=== PATIENT | male | born 1990 | race Caucasian/White ===

== ENCOUNTER 2020-06-19 13:25 | Outpatient (REF) | payer OTHER, SELFPAY | END 2020-06-19 13:26 | disposition home or self-care (01) | LOC: HO.LAB 13:25 | PROVIDERS: Visit Provider Internal Medicine | DX: Z20.828 Contact with and (suspected) exposure to other viral communicable diseases (principal) | CPT/HCPCS: C9803; U0003 ==

== ENCOUNTER 2020-11-28 01:56 | Emergency (ER) | payer OTHER, SELFPAY ==
--- NOTE | ~2020-11-28 | XR_ITS ---
EXAMINATION: XR CHEST CLINICAL INFORMATION: Cough COMPARISON: None TECHNIQUE: Frontal view of the chest was obtained. FINDINGS: Lung volumes are symmetric. No focal consolidation is seen. No evidence of pneumothorax, pleural effusion, or pulmonary edema. The cardiomediastinal contour is unremarkable. No acute osseous findings are seen. XR/XR chest 1V IMPRESSION: No acute cardiopulmonary findings.
[2020-11-28 02:05] VITALS: BP 116/68; PULSE 101; RESP 20; TEMP 36.1; O2SAT 98; BMI 33.6
--- NOTE | 2020-11-28 03:53 | ED_ITS ---
HPI - General Adult General Chief complaint: General Medical Stated complaint: body aches, chills, nausea Time Seen by Provider: 11/28/20 03:48 Source: patient Mode of arrival: ambulatory Limitations: no limitations History of Present Illness HPI narrative: Patient comes emergency room complaining of generalized malaise that started a few hours ago. Patient noticed mild dry cough, nausea, otherwise denies chest pain, no shortness of breath, no abdominal pain, no vomiting or diarrhea. No known sick contacts. Related Data Allergies Allergy/AdvReac Type Severity Reaction Status Date / Time No Known Allergies Allergy Unverified 03/15/20 16:09 Review of Systems Review of Systems: Constitutional : No Weight loss, No Fever, complaining of chills and generalized malaise ENT/Mouth : No Hearing loss, No Ear Pain, No Nasal Congestion, No Sinus Pain, No Hoarseness, No sore throat, No Rhinorrhea, No Swallowing Difficulty Eyes: No Eye Pain, No Swelling, No Redness, No Foreign Body, No Discharge, No Vision Changes Cardiovascular : No Chest Pain, No SOB, No Dyspnea on Exertion, No Orthopnea, No Edema, No Palpitations Respiratory : Mild occasional dry Cough, No Sputum, No Wheezing, No Smoke Exposure, No Dyspnea Gastrointestinal : Mild Nausea, No Vomiting, No Diarrhea, No Constipation, No abdominal Pain, No Hematochezia, No Melena Genitourinary : no irregular bleeding, No Dysuria, No Urinary Frequency, No Hematuria, No Urinary Incontinence, No Urgency, No Flank Pain, No Urinary Flow Changes, No Hesitancy Musculoskeletal : No joint pain, No Myalgias, No Joint Swelling Skin : No Skin Lesions, No rash Neuro : No Weakness, No Numbness, No Paresthesias, No Loss of Consciousness, No Dizziness, No Headache Psych : No Anxiety/Panic, No Depression, No SI/HI/AH/VH, No Social Issues, Heme/Lymph: No Bruising, No Bleeding,No Lymphadenopathy Endocrine : No Polyuria, No Polydipsia, No Temperature Intolerance [facility] Past Medical History Medical History No known health problems Social History Social History Alcohol intake: current Alcohol intake frequency: holidays/special occasions only Patient Tobacco Use Status: Never used Tobacco Use of substances other than those prescribed or required for medical reasons: No Advance Directives: No Advance Directives Information Provided: No Physical Exam Vital Signs: Vital Signs: Last Vital Signs Temp 97.0 F 11/28/20 02:05 Pulse 82 11/28/20 04:00 Resp 15 11/28/20 04:00 BP 140/67 H 11/28/20 04:00 Pulse Ox 98 11/28/20 04:00 Body Mass Index 33.6 Appearance: Alert. Oriented X3. No acute distress. Eyes: Pupils equal, round and reactive to light. ENT: Pharynx normal. Neck: Normal inspection. Neck supple. No lymph nodes noted. No crepitus CVS: Normal heart rate and rhythm. Pulses normal. Normal S1 and S2 Respiratory: No respiratory distress. Breath sounds normal. No Wheezing. No rales Abdomen: Soft and nontender. No rigidity. No distention. good BS x4 Skin: Skin warm and dry. Normal skin color. Normal skin turgor. Extremities: No lower extremity edema. No lower extremity edema. No Lacerations. No Rash Neuro: Oriented X 3. No motor deficit. No sensory deficit. Moving all extermities. No slurred speech. Course Course Course Narrative: I discussed with the patient that his white blood cell count is slightly elevated, likely reactive leukocytosis, likely a viral infection. Chest x-ray within normal limits, COVID negative. Medical Decision Making Lab Data Result diagrams: 11/28/20 04:14 11/28/20 04:14 Labs: Lab Results 11/28/20 11/28/20 11/28/20 Range/Units 04:14 04:14 04:14 WBC 10.9 H (4.8-10.8) X10*3/uL RBC 4.69 (4.60-5.80) X10*6/uL Hgb 14.1 (14.0-18.0) g/dl Hct 42.1 (42-52) % MCV 89.8 (80-98) fL MCH 30.1 (27.0-33.0) pg MCHC 33.5 (31.0-36.0) g/dl RDW 12.5 (11.0-16.0) % Plt Count 305 (160-400) X10*3/uL MPV 9.4 (9.4-12.4) fL Immature Gran % (Auto) 0.3 (0.0-0.4) % Neut % (Auto) 66.4 (45-73) % Lymph % (Auto) 22.0 (20-40) % [place] % (Auto) 11.0 (2-11) % Eos % (Auto) 0.1 (0-4) % Baso % (Auto) 0.2 (0-2) % Lymph # (Auto) 2.4 (1.2-4.9) X10*3/uL [place] # (Auto) 1.2 (0.1-1.2) X10*3/uL Eos # (Auto) 0.0 (0.0-0.4) X10*3/uL Baso # (Auto) 0.0 (0.0-0.2) X10*3/uL Abs Immat Gran (auto) 0.03 (0.00-0.03) X10*3/uL Absolute Neuts (auto) 7.3 (2.0-8.3) X10*3/uL Absolute Nucleated RBC 0.000 (0.0-0.012) X10*3/uL Nucleated RBC % (auto) 0.0 (0.0-0.2) /100WBC Sodium 142 (135-145) mmol/L Potassium 3.3 (3.3-5.1) mmol/L Chloride 105 (96-108) mmol/L Carbon Dioxide 27 (22-29) mmol/L Anion Gap 13 (12-20) BUN 13 (9-16) mg/dL Creatinine 0.85 (0.5-1.4) mg/dL Estim Creat Clear Calc 122.2 Estimated GFR > 60 Random Glucose 105 (60-115) mg/dL Calcium 9.3 (8.4-10.2) mg/dL COVID-19 (JOHN) Negative (Negative) COVID-19 Clin Com See Note Imaging Data Chest x-ray: Radiologist's impression: FINDINGS: Lung volumes are symmetric. No focal consolidation is seen. No evidence of pneumothorax, pleural effusion, or pulmonary edema. The cardiomediastinal contour is unremarkable. No acute osseous findings are seen. XR/XR chest 1V IMPRESSION: No acute cardiopulmonary findings. Discharge Plan Discharge Clinical Impression: Acute viral syndrome Patient Disposition: Home, Self-Care Instructions: Viral Syndrome (ED) Additional Instructions: Please follow-up with your primary care physician tomorrow. If you have any worsening or new symptoms, please return to the emergency room or call 911 Stand Alone Forms: Work/School Release
[2020-11-28 04:00] VITALS: BP 140/67; PULSE 82; RESP 15; O2SAT 98
[2020-11-28 04:19] LABS: Basophils Percent Auto 0.2 % (0-2); Eosinophils Percent Auto 0.1 % (0-4); Hematocrit 42.1 % (42-52); Hemoglobin 14.1 g/dl (14.0-18.0); Imm Gran Abs Auto 0.03 X10*3/uL (0.00-0.03); Imm Gran Pct Auto 0.3 % (0.0-0.4); Lymphocytes Absolute Auto 2.4 X10*3/uL (1.2-4.9); MANUAL DIFF FLAG NO; Mean Corpuscular HGB Conc 33.5 g/dl (31.0-36.0); Mean Corpuscular Hemoglobin 30.1 pg (27.0-33.0); Mean Corpuscular Volume 89.8 fL (80-98); Mean Platelet Volume 9.4 fL (9.4-12.4); Monocytes Absolute Auto 1.2 X10*3/uL (0.1-1.2); Neutrophils Absolute Auto 7.3 X10*3/uL (2.0-8.3); Neutrophils Percent Auto 66.4 % (45-73); Platelet Count 305 X10*3/uL (160-400); Red Blood Count 4.69 X10*6/uL (4.60-5.80); Red Cell Distribution Width 12.5 % (11.0-16.0); White Blood Count 10.9 X10*3/uL (4.8-10.8)
[2020-11-28 04:41] LABS: COVID-19 Test Negative (Negative); IDNOW Serial# 9DD0AD1C
[2020-11-28 04:46] LABS: Anion Gap 13 (12-20); Blood Urea Nitrogen 13 mg/dL (9-16); Calcium 9.3 mg/dL (8.4-10.2); Carbon Dioxide 27 mmol/L (22-29); Chloride 105 mmol/L (96-108); Creatinine Clr Calc Pharmacy 122.2; Estimated Glomerular Filt Rate > 60; Glucose Random 105 mg/dL (60-115); Potassium 3.3 mmol/L (3.3-5.1); Sodium 142 mmol/L (135-145)
== END 2020-11-28 05:11 | disposition home or self-care (01) ==
PROVIDERS: Emergency Provider Emergency Medicine
DX: B34.9 Viral infection, unspecified (principal); Z20.822 Contact with and (suspected) exposure to COVID-19; M79.10 Myalgia, unspecified site
CPT/HCPCS: 36415; 71045; 80048; 85025; 87635; 99283; 99284

== ENCOUNTER 2023-02-28 01:42 | Emergency (ER) | payer OTHER, SELFPAY ==
--- NOTE | ~2023-02-28 | CT_ITS ---
EXAMINATION: CT ABDOMEN AND PELVIS WITHOUT CONTRAST CLINICAL INFORMATION: Abdominal pain. COMPARISON: None available. TECHNIQUE: Multidetector volumetric imaging was performed from the superior aspect of the liver through the pubic symphysis. Sagittal and coronal reformatted images were obtained on the technologist's workstation. This CT examination was performed using dose optimization techniques as appropriate, variously including the following: *Automated exposure control *Adjustment of mA and/or kV according to patient size (this includes techniques or standardized protocols for targeted exams where dose is matched to indication/reason for exam; i.e. extremities or head) *Use of iterative reconstruction technique DLP: 464 mGy-cm FINDINGS: LUNG BASES: The visualized lung bases are unremarkable. LIVER, GALLBLADDER, AND BILIARY TREE: The liver is normal in size, shape, and attenuation. No focal hepatic lesion or biliary ductal dilatation is present. The gallbladder is unremarkable with no evidence of radiopaque gallstones, gallbladder wall thickening, or obvious pericholecystic inflammatory changes. PANCREAS: Unremarkable. SPLEEN: Unremarkable. ADRENAL GLANDS: Unremarkable. KIDNEYS AND URETERS: The kidneys are normal in size, shape, and attenuation. No hydronephrosis, hydroureter, or calculi seen. No perinephric stranding. BLADDER: Unremarkable. GASTROINTESTINAL TRACT: The appendix is not seen. There are surgical clips at the base of the cecum. There is retained right, transverse and descending colonic stool. ABDOMINAL WALL: There is a minimal umbilical hernia containing fat LYMPH NODES: Normal. VASCULAR: Unremarkable. PELVIC VISCERA: Unremarkable. OSSEOUS STRUCTURES: Unremarkable. CT/CT abdomen pelvis wo IV con IMPRESSION: No significant abnormality. Fleischner guidelines were followed.
[2023-02-28 02:14] VITALS: BP 134/80; PULSE 95; RESP 18; TEMP 36.9; O2SAT 98; BMI 30.5
[2023-02-28 02:41] LABS: Appearance Urine Clear; Color Urine Yellow; Glucose Urine UA Negative (Negative); Leukocyte Esterase Urine Trace (Negative); Nitrite Urine Negative (Negative); PH 7.5 (5.0-9.0); Specific Gravity - Urine <= 1.005 (1.005-1.025); UMIC TRIGGER UACC YES; Urine Blood Large (3+) (Negative); Urine Ketones Negative (Negative); Urine Protein Negative (Neg-Trace)
[2023-02-28 02:51] LABS: Bacteria Urine None Seen (None Seen); Hyaline Casts Urine 0-2 /LPF (0-2); Squamous Epithelial Cell Urine 0-2 /HPF (0-2); WBC Urine 0-5 /HPF (0-5)
--- NOTE | 2023-02-28 02:57 | ED_ITS ---
HPI - General Adult General Chief complaint: Abdominal Pain Stated complaint: Urinating blood with pain Time Seen by Provider: 02/28/23 02:53 Source: patient Mode of arrival: ambulatory Limitations: no limitations History of Present Illness HPI narrative: Patient comes to the emergency room complaining of left-sided flank pain for almost 24 hours intermittently. Patient states that yesterday he saw blood in the urine and today he had brown looking urine. Patient states that he has had kidney stones in the past which required lithotripsy. At this time, patient states the pain is minimal, no nausea vomiting diarrhea, no fever chills. Related Data Previous Rx's Medication Instructions Recorded levofloxacin 500 mg tablet 500 mg PO DAILY #7 tabs 02/28/23 Allergies Allergy/AdvReac Type Severity Reaction Status Date / Time No Known Allergies Allergy Unverified 03/15/20 16:09 Review of Systems Review of Systems: Constitutional : No Weight loss, No Fever, No Chills, No Night Sweats, No Fatigue, No Malaise ENT/Mouth : No Hearing loss, No Ear Pain, No Nasal Congestion, No Sinus Pain, No Hoarseness, No sore throat, No Rhinorrhea, No Swallowing Difficulty Eyes: No Eye Pain, No Swelling, No Redness, No Foreign Body, No Discharge, No Vision Changes Cardiovascular : No Chest Pain, No SOB, No Dyspnea on Exertion, No Orthopnea, No Edema, No Palpitations Respiratory : No Cough, No Sputum, No Wheezing, No Smoke Exposure, No Dyspnea Gastrointestinal : No Nausea, No Vomiting, No Diarrhea, No Constipation, No abdominal Pain, No Hematochezia, No Melena Genitourinary : No Dysuria, No Urinary Frequency, complaining Hematuria, No Urinary Incontinence, No Urgency, complaining of left-sided Flank Pain, No Urinary Flow Changes, No Hesitancy Musculoskeletal : No joint pain, No Myalgias, No Joint Swelling Skin : No Skin Lesions, No rash Neuro : No Weakness, No Numbness, No Paresthesias, No Loss of Consciousness, No Dizziness, No Headache Psych : No Anxiety/Panic, No Depression, No SI/HI/AH/VH, No Social Issues, Heme/Lymph: No Bruising, No Bleeding,No Lymphadenopathy Endocrine : No Polyuria, No Polydipsia, No Temperature Intolerance PMFSH Past Medical History Medical History No known health problems Social History Social History Alcohol intake: never Patient Tobacco Use Status: Never used Tobacco Use of substances other than those prescribed or required for medical reasons: No Advance Directives: No Advance Directives Information Provided: Yes Physical Exam ED Vital Signs: Vital Signs - 24 hr 02/28/23 02:14 02/28/23 04:40 02/28/23 06:13 Temperature 98.5 F 97.8 F Pulse Rate 95 69 Respiratory Rate 18 16 16 Blood Pressure 134/80 102/67 Pulse Oximetry 98 98 Oxygen Delivery Method Room Air Room Air BMI result Body Mass Index 30.5 Const Other: Appearance: Alert. Oriented X3. No acute distress. Eyes: Pupils equal, round and reactive to light. ENT: Pharynx normal. Neck: Normal inspection. Neck supple. No lymph nodes noted. No crepitus CVS: Normal heart rate and rhythm. Pulses normal. Normal S1 and S2 Respiratory: No respiratory distress. Breath sounds normal. No Wheezing. No rales Abdomen: Soft and nontender. No rigidity. No distention. Back: No paraspinal muscle tenderness, patient does have positive CVA tenderness very mild on the left Skin: Skin warm and dry. Normal skin color. Normal skin turgor. Extremities: No lower extremity edema. No Lacerations. No Rash Neuro: Oriented X 3. No motor deficit. No sensory deficit. Moving all extremities. No slurred speech. CN 2 through 12 grossly intact Psych: calm, cooperative, normal affect Medical Decision Making Medical Decision Making MDM Narrative: My interpretation of labs, white blood cell count basically normal, chemistries normal, BUN creatinine normal, urinalysis positive for blood, trace leukocyte esterase, no bacteria seen, given the symptoms, we will go ahead treat as a UTI -CT scan of the abdomen pelvis to rule out ureterolithiasis pending CT scan my interpretation: No kidney stones. Differential Diagnosis Differential Diagnoses: The differential diagnosis associated with the presentation includes (Pyelonephritis, UTI, renal colic, ureterolithiasis) Admission/Observation Consideration of admission/observation: Escalation of care including admission/observation considered (Patient came in complaining of hematuria and flank pain, admission considered) Lab Data MDM Lab Attestation statement: I reviewed the patient's lab results. 02/28/23 03:14 02/28/23 03:14 Labs: Lab Results 02/28/23 02/28/23 02/28/23 Range/Units 02:35 03:14 03:14 WBC 8.8 (4.8-10.8) X10*3/uL RBC 3.91 L (4.60-5.80) X10*6/uL Hgb 12.1 L (14.0-18.0) g/dl Hct 35.9 L (42.0-52.0) % MCV 91.8 (80.0-98.0) fL MCH 30.9 (27.0-33.0) pg MCHC 33.7 (31.0-36.0) g/dl RDW 13.6 (11.0-16.0) % Plt Count 318 (160-400) X10*3/uL MPV 8.4 L (9.4-12.4) fL Immature Gran % (Auto) 0.2 (0.0-0.4) % Neut % (Auto) 57.5 (45-73) % Lymph % (Auto) 26.0 (20-40) % [place] % (Auto) 11.8 H (2-11) % Eos % (Auto) 4.0 (0-4) % Baso % (Auto) 0.5 (0-2) % Lymph # (Auto) 2.3 (1.2-4.9) X10*3/uL [place] # (Auto) 1.0 (0.1-1.2) X10*3/uL Eos # (Auto) 0.4 (0.0-0.4) X10*3/uL Baso # (Auto) 0.0 (0.0-0.2) X10*3/uL Abs Immat Gran (auto) 0.02 (0.00-0.03) X10*3/uL Absolute Neuts (auto) 5.0 (2.0-8.3) x10*3/uL Absolute Nucleated RBC 0.000 (0.0-0.012) X10*3/uL Nucleated RBC % (auto) 0.0 (0.0-0.2) /100WBC Sodium 138 (135-145) mmol/L Potassium 3.4 (3.3-5.1) mmol/L Chloride 103 (96-108) mmol/L Carbon Dioxide 24 (22-29) mmol/L Anion Gap 14 (12-20) BUN 12 (9-16) mg/dL Creatinine 0.66 (0.5-1.4) mg/dL Estim Creat Clear Calc 147.1 Estimated GFR > 60 Random Glucose 104 (60-115) mg/dL Calcium 9.5 (8.4-10.2) mg/dL Urine Color Yellow Urine Appearance Clear Urine pH 7.5 (5.0-9.0) Ur Specific [place] <= 1.005 (1.005-1.025) Urine Protein Negative (Neg-Trace) mg/dL Urine Glucose (UA) Negative (Negative) mg/dL Urine Ketones Negative (Negative) mg/dL Urine Blood Large (3+) H (Negative) Urine Nitrite Negative (Negative) Ur Leukocyte Esterase Trace H (Negative) Urine RBC 11-20 H (0-2) /HPF Urine WBC 0-5 (0-5) /HPF Ur Squamous Epith Cells 0-2 (0-2) /HPF Urine Bacteria None Seen (None Seen) Hyaline Casts 0-2 (0-2) /LPF Independent Interpretation I performed an independent interpretation of an: CT Scan Radiology Impression Discussion of test interpretation with radiology: I have reviewed the radiologist's reading. Radiologist Impression: FINDINGS: LUNG BASES: The visualized lung bases are unremarkable.? LIVER, GALLBLADDER, AND BILIARY TREE: The liver is normal in size, shape, and attenuation. No focal hepatic lesion or biliary ductal dilatation is present. The gallbladder is unremarkable with no evidence of radiopaque gallstones, gallbladder wall thickening, or obvious pericholecystic inflammatory changes.? PANCREAS: Unremarkable.? SPLEEN: Unremarkable.? ADRENAL GLANDS: Unremarkable.? KIDNEYS AND URETERS: The kidneys are normal in size, shape, and attenuation. No hydronephrosis, hydroureter, or calculi seen. No perinephric stranding. ? BLADDER: Unremarkable.? GASTROINTESTINAL TRACT: The appendix is not seen. There are surgical clips at the base of the cecum. There is retained right, transverse and descending colonic stool.? ABDOMINAL WALL: There is a minimal umbilical hernia containing fat? LYMPH NODES: Normal. VASCULAR: Unremarkable. PELVIC VISCERA: Unremarkable.? OSSEOUS STRUCTURES: Unremarkable.? CT/CT abdomen pelvis wo IV con IMPRESSION: No significant abnormality.? ? Fleischner guidelines were followed Critical Care Time Critical Care Time Critical Care Time: Yes Total Critical Care Time: 60 Attestation: I have personally provided critical care time. Time includes review of lab data, radiology results, discussion with consultants, and monitoring for potential decompensation. Intervention performed as documented. Discharge Plan Discharge Clinical Impression: Acute UTI Patient Disposition: Home, Self-Care Instructions: Urinary Tract Infection in Men (ED) Additional Instructions: Please follow-up with your primary care physician tomorrow. If you have any worsening or new symptoms, please return to the emergency room or call 911 Prescriptions: New levofloxacin 500 mg tablet 500 mg PO DAILY Qty: 7 0RF
[2023-02-28 03:17] LABS: MANUAL DIFF FLAG NO
[2023-02-28 03:20] LABS: Basophils Percent Auto 0.5 % (0-2); Eosinophils Absolute Auto 0.4 X10*3/uL (0.0-0.4); Hematocrit 35.9 % (42.0-52.0); Hemoglobin 12.1 g/dl (14.0-18.0); Imm Gran Abs Auto 0.02 X10*3/uL (0.00-0.03); Imm Gran Pct Auto 0.2 % (0.0-0.4); Lymphocytes Absolute Auto 2.3 X10*3/uL (1.2-4.9); Mean Corpuscular HGB Conc 33.7 g/dl (31.0-36.0); Mean Corpuscular Hemoglobin 30.9 pg (27.0-33.0); Mean Corpuscular Volume 91.8 fL (80.0-98.0); Mean Platelet Volume 8.4 fL (9.4-12.4); Monocytes Percent Auto 11.8 % (2-11); Neutrophils Percent Auto 57.5 % (45-73); Platelet Count 318 X10*3/uL (160-400); Red Blood Count 3.91 X10*6/uL (4.60-5.80); Red Cell Distribution Width 13.6 % (11.0-16.0); White Blood Count 8.8 X10*3/uL (4.8-10.8)
[2023-02-28 03:32] LABS: Anion Gap 14 (12-20); Blood Urea Nitrogen 12 mg/dL (9-16); Calcium 9.5 mg/dL (8.4-10.2); Carbon Dioxide 24 mmol/L (22-29); Chloride 103 mmol/L (96-108); Creatinine Clr Calc Pharmacy 147.1; Estimated Glomerular Filt Rate > 60; Glucose Random 104 mg/dL (60-115); Potassium 3.4 mmol/L (3.3-5.1); Sodium 138 mmol/L (135-145)
[2023-02-28 04:40] VITALS: RESP 16
[2023-02-28 06:13] VITALS: BP 102/67; PULSE 69; RESP 16; TEMP 36.6; O2SAT 98
== END 2023-02-28 06:36 | disposition home or self-care (01) ==
PROVIDERS: Emergency Provider Emergency Medicine
DX: N39.0 Urinary tract infection, site not specified (principal)
CPT/HCPCS: 36415; 74176; 80048; 81001; 85025; 99284

== ENCOUNTER 2024-09-30 09:36 | Outpatient (AMB) | payer OTHER, SELFPAY ==
--- NOTE | 2024-09-30 09:36 | A.OFFVIS_ITS ---
Vital Signs 09/30/24 09:47 Height 5 ft 2 in Weight 178 lb BMI 32.6 Pulse 96 Pulse Source Pulse Oximeter Pulse Oximetry (%) 99 Oxygen Delivery Method Room Air Intake Visit Reasons: Intake Allergies No Known Allergies Allergy (Verified 09/30/24 09:47) HPI HPI Intake: Details: He is here for cocaine use disorder as well as opioid use disorder. He has used cocaine for last three years and was first 1 1/2 years every three months and then now daily. He uses one bag a day of cocaine. He also uses 1/4 of 8 mg suboxone script (2 mg) daily which he started one month ago and now cant get off but wants to He also buys Xanax ,not sure of mg or how much uses daily. He came in for cocaine use disorder but did not admit to use of buprenorphine or benzodiazepine until we discussed drug screen. He used all today. Source of income was job at [employer] but they downsized and he got laid off last month. He lives with and two children. He has no PCP but did see [facility] in past and will reconnect. 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 resides at home IVDA denies no OD Recovery history no recovery no inpatient no care home house no Methadone no Suboxone no AA/NA no 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 [facility] waiting for [facility] on list,Jesús in past doesnt want to return dx depression no other addictive behavior reported no SI or HI Med no seizures,no head injury Denies Hepatitis A,B,C or HIV or TB no chronic pain Legal denies incarceration ,parole,court cases or programs No [employer] 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 Father No problems noted. Mother Health problem in family Social History (Updated 09/30/24 @ 10:51 by Kiera White MD) Alcohol intake: current Alcohol intake frequency: holidays/special occasions only Comment: weekend 1=2 standard drinks Patient Tobacco Use Status: Current everyday Tobacco user Cigarette Packs Per Day: 0.5 Cigarettes Per Day: 10 Years Smoked: 10 e-Cigarette/Vaping Use: Never Used Second Hand Smoke Exposure: No Review of Systems Const Details: insomnia anxiety depression Physical Exam Vital Signs: Last Vital Signs Pulse 96 09/30/24 09:47 Pulse Ox 99 09/30/24 09:47 Oxygen Delivery Method Room Air 09/30/24 09:47 BMI result Body Mass Index 32.6 Const General: cooperative HEENT Other: lip prior surgery upper lip scar Ears: hearing grossly normal bilaterally Mouth: Normal oral and palatal mucosa present Resp Effort & Inspection: normal respiratory effort Cardio Rate: regular rate GI Inspection: Yes normal to inspection Extrem General: Yes normal to inspection Psych Appearance: grossly normal Results AMB 14 Panel Urine Drug Screen Urine Marijuana (THC) Negative Last Edit by Dena Preston CMA on 09/30/24 09:49 Urine Cocaine Positive Last Edit by Dena Preston CMA on 09/30/24 09:49 Urine Morphine Negative Last Edit by Dena Preston CMA on 5 09:49 Urine Methamphetamine Negative Last Edit by Dena Preston CMA on 09/30/24 09:49 Urine Amphetamine Negative Last Edit by Dena Preston CMA on 09/30/24 09:49 Urine Benzodiazepine Positive Last Edit by Dena Preston CMA on 09/30/24 09:49 Urine Barbiturates Negative Last Edit by Dena Preston CMA on 09/30/24 09:49 Urine Methadone Negative Last Edit by Dena Preston CMA on 09:49 Urine Buprenorphine Positive Last Edit by Dena Preston CMA on 09/30/24 09:49 Urine Tricyclic Antidepressant Negative Last Edit by Dena Preston CMA on 09/30/24 09:49 Urine MDMA Negative Last Edit by Dena Preston CMA on 09/30/24 09 :49 Urine Oxycodone Negative Last Edit by Dena Preston CMA on 09:49 Urine Phencyclidine Negative Last Edit by Dena Preston CMA on 09/30/24 09:49 Urine Propoxyphene Negative Last Edit by Dena Preston CMA on 09/30/24 09:49 Results Reviewed Results Reviewed: Laboratory Last Values POC Urine Buprenorphine Positive 09/30/24 09:36 POC Urine Morphine Negative 09/30/24 09:36 POC Urine Oxycodone Negative 09/30/24 09:36 POC Urine Methadone Negative 09/30/24 09:36 POC Urine Propoxyphene Negative 09/30/24 09:36 POC Urine Barbiturates Negative 09/30/24 09:36 POC U Tricyclic Antidpr Negative 09/30/24 09:36 POC Urine PCP Negative 09/30/24 09:36 POC Ur Amphetamines Negative 09/30/24 09:36 POC Ur Methamphetamine Negative 09/30/24 09:36 POC Urine MDMA Negative 09/30/24 09:36 POC Ur Benzodiazepine Positive 09/30/24 09:36 POC Urine Cocaine Positive 09/30/24 09:36 POC Ur Marijuana (THC) Negative 09/30/24 09:36 Assessment & Plan Assessment & Plan (1) Cocaine use disorder, moderate, dependence: Comment: moderate daily use Code(s): F14.20 - Cocaine dependence, uncomplicated Category: Medical Plan: Wellbutrin (2) Depression: Code(s): F32.A - Depression, unspecified Category: Medical Plan: Welbutrin (3) Anxiety: Comment: general Code(s): F41.9 - Anxiety disorder, unspecified Category: Medical Plan: hydroxyzine (4) Opioid use disorder: Comment: patient wishes to taper off suboxone he started taking one month ago Code(s): F11.90 - Opioid use, unspecified, uncomplicated Category: Medical Plan continue 2 mg and patient instructed taper every three days if able 3 days 2 mg 3 days 1.5 mg 3 days 1 mg 3 days .5 mg see us 14 days Orders: Orders AMB 14 Panel Urine Drug Screen Today Z51.81 - Encounter for therapeutic drug level monitoring Complete Blood Count Auto Diff Today F14.20 - Cocaine dependence, uncomplicated Basic Metabolic Panel Today F14.20 - Cocaine dependence, uncomplicated Liver Panel Today F14.20 - Cocaine dependence, uncomplicated Hepatitis B Core Antibody Today F14.20 - Cocaine dependence, uncomplicated Hepatitis B Surface Ab Qnt Today F14.20 - Cocaine dependence, uncomplicated Syphilis Screen Today F1.20 - Cocaine dependence, uncomplicated Hepatitis A IgG Today F1.20 - Cocaine dependence, uncomplicated Hepatitis C Antibody Reflex Today F1.20 - Cocaine dependence, uncomplicated HIV Ab/Ag Today F1.20 - Cocaine dependence, uncomplicated Hepatitis B Surface Antigen Today F1.20 - Cocaine dependence, uncomplicated T Spot TB Today F1.20 - Cocaine dependence, uncomplicated Medications: New hydroxyzine HCl 25 mg PO BID 14 days 28 tabs 1RF bupropion HCl XL (Wellbutrin XL) 150 mg PO QAM 30 days 30 tabs 1RF buprenorphine-naloxone 2-0.5 mg (Suboxone) place 1 strip/tab under (each) side of tongue 1 film sublingual DAILY 14 days 14 ea 0RF bupropion HCl XL (Wellbutrin XL) 150 mg PO QAM 30 days 30 tabs 1RF bupropion HCl XL (Wellbutrin XL) 150 mg PO QAM 30 days 30 tabs 1RF Discontinued levofloxacin Discontinued Reason: Patient no longer taking 500 mg PO DAILY 7 tabs 0RF Coding Level of Care Code New Pt Level 4 (87514) Diagnoses Cocaine use disorder, moderate, dependence F14.20 Depression F32.A Anxiety F41.9 Opioid use disorder F11.90
[2024-09-30 09:47] VITALS: PULSE 96; O2SAT 99; BMI 32.6
--- OUTSIDE RECORDS SUMMARY | 2024-09-30 10:36 | XMS_ITS | Clinical Summary ---
Author Organization [employer] Address [address] [place] [address] 7[address] [place] [address] Care Team Providers Care Electronics Repair Technician Name Role Phone Peggy Coombs MD Primary Care Provider [phone] Medications loratadine (Claritin) 10 MG tablet take 1 tablet by oral route every day for congestion 2 07/18/19 26 Active pseudoephedrine (Sudafed) 30 MG tablet take 1 tablet (30MG) by oral route every 8 hours as needed for congestion 2 07/18/19 26 Active sertraline (Zoloft) 100 MG tablet Take 1 tablet (100 mg) by mouth in the morning. 90 tablet 3 3 Active Active Problems Problem Noted Date Diagnosed Date History of severe acute resp iratory syndrome coronavirus 2 (SARS-CoV-2) disease 08/06/2021 Allergic rhinitis 05/21/2020 Obesity 05/21/2020 Immunizations Name Administration Dates Next Due Influenza injectable quadriv alent IIV4 with preservative 05/29/2015 Influenza injectable quadrivalent preservative f ree 05/21/2020 Tdap 08/06/2021 Social History Tobacco Use Types Packs/Day Years Used Date Smoking Tobacco: Never Assessed Sex and Gender Information Value Date Recorded Sex Assigned at Male 04/28/2022 10:21 AM EDT Legal Sex Male 10:21 AM EDT Gender Identity Male 04/28/2022 10:21 AM EDT Sexual Orientation Choose not to disclose 2021 10:21 AM EDT Last Filed Vital Signs Vital Sign Reading Time Taken Comments Blood Pressure 122/88 08/06/2021 12:02 AM EST Pulse 84 08/06/2021 12:02 AM EST Temperature - - Respiratory Rate - - Oxygen Saturation - - Inhaled Oxygen Concentration - - Weight 87.1 kg (192 lb) 08/06/2021 12:02 AM EST Height 166.4 cm (5' 5.5 ) 08/06/2021 12:02 AM ES T Body Mass Index 31.46 08/06/2021 12:02 AM EST Plan of Treatment Health Maintenance Due Date Last Done Comments Depression Screening 1989 SDOH Screening 1989 Alcohol/Substance Use Screening 2001 Tobacco Screening 2001 Family Planning (PISQ) 2004 Hepatitis B Vaccines (1 of 3 - 19+ 3-dose series) 2008 COVID-19 Vaccine ( - 2023-2 5 season) 2024 12/05/2020, 11/14/2020 Influenza Vaccine (#1) 2024 , 05/29/2015 Lipid Panel 08/06/2026 08/06/2021 DTaP/Tdap/Td Vaccines (2 - T d or Tdap) 08/06/2031 08/06/2021 Zoster Vaccines (1 of 2) 2039 RSV Patients and Patients Aged 60 years or older (1 - 1-dose 75+ series) 2064 HIV Screening Completed 08/06/2021 Hepatitis C Screening Completed 08/06/2021 HIB Vaccines Aged Out No longer eligi ble based on patient's age to complete this topic HPV Vaccines Aged Out No longer eligi ble based on patient's age to complete this topic Hepatitis A Vaccines Aged Out No long er eligible based on patient's age to complete this topic IPV Vaccines Aged Out No longer eligi ble based on patient's age to complete this topic Meningococcal Vaccine Aged Out No melissa anirudh eligible based on patient's age to complete this topic Pneumococcal Vaccine: Pediatrics (0 to 5 Years) and At-Risk Patients (6 to 49) Years) Aged Out No longer eligible b ased on patient's age to complete this topic RSV under 20 months Aged Out No longe r eligible based on patient's age to complete this topic Rotavirus Vaccines Aged Out No longer eligible based on patient's age to complete this topic Procedures Procedure Name Priority Date/Time Associated Diagnosis Comments ZIMANI HISTORICAL HEPATITIS C AB W/REFL TO HCV RNA, QN, PCR Routine 08/06/2021 10:43 AM EST HIV 1/2 ANTIGEN/ANTIBODY, FOURTH GENERATION W/RFL Routine 08/06/2021 10:43 AM EST LIPID PANEL, STANDARD Routine 08/06/2021 10:43 AM EST from Last 3 Months or Most Recently Relevant to Health Maintenance Results * HEPATITIS C AB W/REFL TO HCV RNA, QN, PCR (08/06/2021 10:43 AM EST) HEPATITIS C ANTIBODY NON-REACT CHRISTINA NON-REACT CHRISTINA [facility] INDEX 0.03 <1.00 [facility] Comment: ?? HCV antibody was non-reactive. There is no laboratory ?? evidence of HCV infection. ?? In most cases, no further action is required. However, if recent HCV exposure is suspected, a test for HCV RNA (test code 12652) is suggested. ?? For additional information please refer to http://education.Ekaya.com/faq/NBY24f7 (This link is being provided for informational/ educational purposes only.) ?? 08/06/2021 10:4 3 AM EST Peggy Coombs MD HISTORICAL/NON ORDERABLE LABS Final Result [facility] [address] * HIV 1/2 ANTIGEN/ANTIBODY,FOURTH GENERATION W/RFL (08/06/2021 10:43 AM EST) HIV-1/2 ANTIGEN AND ANTIBODIES, 4TH GENERATION W/ REFLEX NON-REACT CHRISTINA NON-REACT CHRISTINA [facility] Comment: HIV-1 antigen and HIV-1/HIV-2 antibodies were not detected. There is no laboratory evidence of HIV infection. ?? PLEASE NOTE: This information has been disclosed to you from records whose confidentiality may be protected by state law. ??If your state requires such protection, then the state law prohibits you from making any further disclosure of the information without the specific written consent of the person to whom it pertains, or as otherwise permitted by law. A general authorization for the release of medical or other information is NOT sufficient for this purpose. ? For additional information please refer to http://Communication Science.Ekaya.com/faq/EFH724 (This link is being provided for informational/ educational purposes only.) ? The performance of this assay has not been clinically validated in patients less than 2 years old. ?? 08/06/2021 10:4 3 AM EST us Peggy Coombs MD LAB BLOOD ORDERABLES Final Res ult [facility] [address] * (ABNORMAL) LIPID PANEL, STANDARD (08/06/2021 10:43 AM EST) Chol/HDLC Ratio 5.1(H) <5.0 (calc) [facility] Cholesterol, Total 184 <200 mg/dL [facility] HDL Cholesterol 36(L) > OR = 40 mg/dL [facility] LDL Cholesterol 119(H) mg/dL (calc) [facility] Comment: Reference range: <100 ?? Desirable range <100 mg/dL for primary prevention; ?? <70 mg/dL for patients with CHD or diabetic patients ?? with > or = 2 CHD risk factors. ?? LDL-C is now calculated using the Armand ?? calculation, which is a validated novel method providing ?? better accuracy than the Friedewald equation in the ?? estimation of LDL-C. ?? Jose Juan SHELDON et al. BOLIVAR. 2013;310(19): 0597-1533 ?? (http://Communication Science.Moqom.Orbital Traction/faq/BJQ674) Non-HDL Cholesterol 148(H) <130 mg/dL (calc) [facility] Comment: For patients with diabetes plus 1 major ASCVD risk ?? factor, treating to a non-HDL-C goal of <100 mg/dL ?? (LDL-C of <70 mg/dL) is considered a therapeutic ?? option. Triglycerides 174(H) <150 mg/dL [facility] 08/06/2021 10:4 3 AM EST Peggy Coombs MD LAB BLOOD ORDERABLES Final Res ult [facility] [address] from Last 3 Months or Most Recently Relevant to Health Maintenance Insurance [employer] Care Teams Electronics Repair Technician Relationship Specialty Start Date End Date Peggy Coombs MD [address] [place], [place] PCP - General Family Medicine 05/16/20
--- OUTSIDE RECORDS SUMMARY | 2024-09-30 10:36 | XMS_ITS | Encounter Summary ---
Author Organization [facility] Address [address] [place] [address] 7t [place] [address] Care Team Providers Care Instructor Of Sociology Name Role Phone Peggy Coombs MD Primary Care Provider [phone] Encounter Details Date Type Department Care Team (Late st Contact Info) Description 03/24/2023 Orders Only [facility] MEDICINE [address] [place] [address] Peggy Coombs MD [address] [place] [address] Social History Tobacco Use Types Packs/Day Years Used Date Smoking Tobacco: Never Assessed Sex and Gender Information Value Date Recorded Sex Assigned at Male 04/28/2022 10:21 AM EDT Legal Sex Male 10:21 AM EDT Gender Identity Male 04/28/2022 10:21 AM EDT Sexual Orientation Choose not to disclose 2021 10:21 AM EDT documented as of this encounter Plan of Treatment Not on file documented as of this encounter Visit Diagnoses Not on filedocumented in this encounter Care Teams Instructor Of Sociology Relationship Specialty Start Date End Date Peggy Coombs MD [address] [place], [place] [phone] PCP - General Family Medicine 05/16/20 documented as of this encounter
--- OUTSIDE RECORDS SUMMARY | 2024-09-30 10:37 | XMS_ITS | Encounter Summary ---
Author Organization [facility] Address [address] [place] [address] 7 [place] [address] Care Team Providers Care Lithographic Proofer Apprentice Name Role Phone Peggy Coombs MD Primary Care Provider [phone] Reason for Visit * Reason Onset Date Comments Appointment Request 07/08/2023 Encounter Details Date Type Department Care Team ([facility] st Contact Info) Description 07/08/2023 Telephone [facility] MEDICINE [address] [place] [address] Peggy Coombs MD [address] [place] [address] Appointment Request Social History Tobacco Use Types Packs/Day Years Used Date Smoking Tobacco: Never Assessed Sex and Gender Information Value Date Recorded Sex Assigned at Male 04/28/2022 10:21 AM EDT Legal Sex Male 10:21 AM EDT Gender Identity Male 04/28/2022 10:21 AM EDT Sexual Orientation Choose not to disclose 2021 10:21 AM EDT documented as of this encounter Miscellaneous Notes * Telephone Encounter - Liseth Cheung - 07/08/2023 2:40 PM EST Tc from pt requesting PE appt. documented in this encounter Plan of Treatment Not on file documented as of this encounter Visit Diagnoses Not on filedocumented in this encounter Care Teams Lithographic Proofer Apprentice Relationship Specialty Start Date End Date Peggy Coombs MD [address] [place] [address] PCP - General Family Medicine 05/16/20 documented as of this encounter
--- OUTSIDE RECORDS SUMMARY | 2024-09-30 10:37 | XMS_ITS | Clinical Summary ---
Author Organization [facility] Address [address] [place] [address] Care Team Providers Care Critical Care Nurse Name Role Phone Unavailable Primary Care Provider Unavailabl e Source Comments PLEASE NOTE, if this patient is a minor, it may be UNLAWFUL to discuss sensitive information that is contained in these records (such as FAMILY PLANNING, MENTAL HEALTH or SUBSTANCE ABUSE) with the minor patient's parent or other person without the patient's specific authorization.[facility] Immunizations Immunization Administration Dates Next Due PFIZER COVID VACCINE, PURPLE CAP, 12+ 12/05/2020 ,11/14/2020 Social History Tobacco Use Types Packs/Day Years Used Date Smoking Tobacco: Never Assessed Social Connections Answer Date Recorded Social Connections and Isolation 0 01/02/2024 Financial Resource Strain Answer Date R ecorded Financial Resource Strain 0 2023 Stress Answer Date Recorded Stress 0 01/02/2024 Physical Activity Answer Date Recorded Physical Activity 0 01/02/2024 Food Insecurity Answer Date Recorded Food 0 01/02/2024 Transportation Needs Answer Date Record ed Transportation 0 01/02/2024 Housing Stability Answer Date Recorded Housing 0 01/02/2024 Safety and Environment Answer Date Kavon rded Safety 0 01/02/2024 Utilities Answer Date Recorded Utilities 0 01/02/2024 Employment Answer Date Recorded Employment 0 01/02/2024 Sex and Gender Information Value Date Recorded Sex Assigned at Not on file Legal Sex Male 7:08 AM PDT Gender Identity Not on file Sexual Orientation Not on file Plan of Treatment Health Maintenance Due Date Last Done Comments Anxiety Screening 1989 Diabetes Screening 1989 Hepatitis C Screening 1989 Tobacco Screening 1989 HIV Screening 2004 Hypertension Screening (#1) 2007 Imm-DTaP/Tdap/Td (1 - Tdap) 2008 Imm-Hepatitis B (1 of 3 - 19 + 3-dose series) 2008 [id number] ( season) 2024 021, 11/14/2020 Imm-Influenza (#1) 2024 05/21/2020, 05/29/2015 Alcohol and Drug Screen 06/29/2024 Depression Annual Screen 06/29/2024 Insurance [facility] Member Subscriber Plan / Payer (Ef fective 2010-Present) Name:Jason Avery Relation to Subscriber:Self Name:Jason Avery Payer ID:[id number] Type:Indemnity Address: [address] [address]
== END 2024-09-30 10:36 | disposition home or self-care (01) ==
LOC: HO.HID 09:37
PROVIDERS: Visit Provider Internal Medicine
DX: F14.20 Cocaine dependence, uncomplicated (principal); F32.A Depression, unspecified; F41.9 Anxiety disorder, unspecified; F11.90 Opioid use, unspecified, uncomplicated
CPT/HCPCS: 99204

== ENCOUNTER → 2024-09-30 09:36 | Outpatient (BNVA) | payer OTHER, SELFPAY | PROVIDERS: Visit Provider Internal Medicine | DX: F14.20 Cocaine dependence, uncomplicated (principal); F11.20 Opioid dependence, uncomplicated; F32.A Depression, unspecified; F41.9 Anxiety disorder, unspecified | CPT/HCPCS: 99202 ==

== ENCOUNTER 2024-11-11 11:23 | Outpatient (AMB) | payer OTHER, SELFPAY ==
--- NOTE | 2024-11-11 11:31 | MHC.OFFVIS ---
Intake Visit Reasons: MAT Allergies No Known Allergies Allergy (Verified 09/30/24 09:47) HPI HPI MAT: Details: He is off Suboxone as he says he is not using opioids and his main concern is cocaine use disorder and depression. He has depression and needs help and feels he may be in crisis although not suicidal at this time. He wants to get help and thinks might need inpatient help. He just started Welbutrin yesterday He is not taking Suboxone. [facility] Medical History Anxiety Depression Surgical defect of lip Tobacco use disorder Mild benzodiazepine use disorder Opioid use disorder Insomnia Cocaine use disorder, moderate, dependence No known health problems Surgical History History of appendectomy Family History Father No problems noted. Father No problems noted. Mother Health problem in family Social History Alcohol intake: current Alcohol intake frequency: holidays/special occasions only Comment: weekend 1=2 standard drinks Patient Tobacco Use Status: Current everyday Tobacco user Cigarette Packs Per Day: 0.5 Cigarettes Per Day: 10 Years Smoked: 10 e-Cigarette/Vaping Use: Never Used Second Hand Smoke Exposure: No Review of Systems Const All systems reviewed & are unremarkable except as noted in HPI and below Physical Exam Const General: cooperative Psych Affect: Sad affect present Attitude: cooperative Results AMB 14 Panel Urine Drug Screen Urine Marijuana (THC) Negative Last Edit by Dena Preston CMA on 11/11/24 11:49 Urine Cocaine Positive Last Edit by Dena Preston CMA on 11/11/24 11:49 Urine Morphine Negative Last Edit by Dena Preston CMA on 11/11/24 11:49 Urine Methamphetamine Negative Last Edit by Dena Preston CMA on 11/11/24 11:49 Urine Amphetamine Negative Last Edit by Dena Preston CMA on 11/11/24 11:49 Urine Benzodiazepine Negative Last Edit by Dena Preston CMA on 11/11/24 11:49 Urine Barbiturates Negative Last Edit by Dena Preston CMA on 11/11/24 11:49 Urine Methadone Negative Last Edit by Dena Preston CMA on 11/11/24 11:49 Urine Buprenorphine Positive Last Edit by Dena Preston CMA on 11/11/24 11:49 Urine Tricyclic Antidepressant Negative Last Edit by Dena Preston CMA on 11/11/24 11:49 Urine MDMA Negative Last Edit by Dena Preston CMA on 11/11/24 11:49 Urine Oxycodone Negative Last Edit by Dena Preston CMA on 11/11/24 11:49 Urine Phencyclidine Negative Last Edit by Dena Preston CMA on 11/11/24 11:49 Urine Propoxyphene Negative Last Edit by Dena Preston CMA on 11/11/24 11:49 Results Reviewed Results Reviewed: Laboratory Last Values POC Urine Buprenorphine Positive 11/11/24 11:46 POC Urine Morphine Negative 11/11/24 11:46 POC Urine Oxycodone Negative 11/11/24 11:46 POC Urine Methadone Negative 11/11/24 11:46 POC Urine Propoxyphene Negative 11/11/24 11:46 POC Urine Barbiturates Negative 11/11/24 11:46 POC U Tricyclic Antidpr Negative 11/11/24 11:46 POC Urine PCP Negative 11/11/24 11:46 POC Ur Amphetamines Negative 11/11/24 11:46 POC Ur Methamphetamine Negative 11/11/24 11:46 POC Urine MDMA Negative 11/11/24 11:46 POC Ur Benzodiazepine Negative 11/11/24 11:46 POC Urine Cocaine Positive 11/11/24 11:46 POC Ur Marijuana (THC) Negative 11/11/24 11:46 Assessment & Plan Assessment & Plan (1) Anxiety: Comment: general Code(s): F41.9 - Anxiety disorder, unspecified Category: Medical Plan: Referred to services for depression management/counseling and if suicidal ER but can contract for safety now and is not suicidal. (2) Depression: Code(s): F32.A - Depression, unspecified Category: Medical Plan: na (3) Cocaine use disorder, moderate, dependence: Comment: moderate daily use Code(s): F14.20 - Cocaine dependence, uncomplicated Category: Medical Plan: na (4) Opioid use disorder: Comment: patient wishes to taper off suboxone he started taking one month ago Code(s): F11.90 - Opioid use, unspecified, uncomplicated Category: Medical Plan: na Orders: Orders AMB 14 Panel Urine Drug Screen Today Z51.81 - Encounter for therapeutic drug level monitoring Referrals Counseling Referral F32.A - Depression, unspecified, F41.9 - Anxiety disorder, unspecified Medications: Refilled hydroxyzine HCl 25 mg PO BID 14 days 28 tabs 3RF Coding Level of Care Code Est Pt Level 3 (37463) Diagnoses Anxiety F41.9 Depression F32.A Cocaine use disorder, moderate, dependence F14.20 Opioid use disorder F11.90
--- OUTSIDE RECORDS SUMMARY | 2024-11-11 11:44 | XMS_ITS | Clinical Summary ---
Author Organization [facility] Address [address] [place] [address] Care Team Providers Care Substation Electrician Supervisor Name Role Phone Unavailable Primary Care Provider [...] 3 - 19 + 3-dose series) 2008 [id number] ( season) 2024 021, 11/14/2020 Imm-Influenza (#1) 2024 05/21/2020, 05/29/2015 Alcohol and Drug Screen 06/29/2024 Depression Annual Screen 06/29/2024 Insurance [facility] INSURANCE Member Subscriber Plan / Payer (Ef fective 2010-Present) Name:Jason Avery Relation to Subscriber:Self Name:Jason Avery Payer ID:[id number] Type:Indemnity Address: [address] [address]
--- OUTSIDE RECORDS SUMMARY | 2024-11-11 11:44 | XMS_ITS | Encounter Summary ---
Author Organization [facility] Address [address] [place] [address] Care Team Providers Care Refining Engineer Name Role Phone Peggy Coombs MD Primary Care Provider [phone] Reason for Visit * Reason Onset Date Comments Appointment Request 07/08/2023 Encounter Details Date Type Department Care Team ([facility] st Contact Info) Description 07/08/2023 Telephone [facility] MEDICINE [address] [place] [address] Peggy Coombs MD [address] [place] [address] Appointment Request Social History Tobacco Use Types [...] on filedocumented in this encounter Care Teams Refining Engineer Relationship Specialty Start Date End Date Peggy Coombs MD [address] [place], [place] [phone] PCP - General Family Medicine 05/16/20 documented as of this encounter
--- OUTSIDE RECORDS SUMMARY | 2024-11-11 11:44 | XMS_ITS | Encounter Summary ---
Author Organization [facility] Address [address] [place] [address] [address] [address] Care Team Providers Care Dealer Account Manager Name Role Phone Peggy Coombs MD Primary Care Provider [phone] Encounter Details Date Type Department Care Team (Late st Contact Info) Description 03/24/2023 Orders Only [facility] MEDICINE [address] [place] [address] Peggy Coombs MD [address] [place] [address] Social History Tobacco Use Types Packs/Day Years [...] on filedocumented in this encounter Care Teams Dealer Account Manager Relationship Specialty Start Date End Date Peggy Coombs MD [address] [place], [place] [phone] PCP - General Family Medicine 05/16/20 documented as of this encounter
--- OUTSIDE RECORDS SUMMARY | 2024-11-11 11:44 | XMS_ITS | Clinical Summary ---
Author Organization [facility] Address [address] [place] [address] [address]t [place] [address] Care Team Providers Care Insurance Claim Representative Name Role Phone Peggy Coombs MD Primary Care Provider [phone] Medications loratadine (Claritin) 10 MG tablet take [...] 08/06/2021 Allergic rhinitis 05/21/2020 Obesity 05/21/2020 Immunizations Immunization Administration Dates Next Due Influenza injectable quadriv [...] Tobacco Screening 2001 Family Planning (PISQ) 2004 COVID-19 Vaccine ( season) 2024 12/05/2020, 11/14/2020 Influenza Vaccine (#1) 2024 , 05/29/2015, 06/01/2008, Additional history exists Lipid Panel 08/06/2026 08/06/2021 DTaP/Tdap/Td Vaccines (8 - Td or Tdap) 08/06/2031 08/06/2021, 01/14/2008, 06/16/2002, Additional history exists Zoster Vaccines (1 of 2) 2039 RSV Patients and Patients Aged 60 years or older (1 - 1-dose 75+ series) 2064 HIB Vaccines Completed 04/25/1993, 02/27, 10/26/1990 IPV Vaccines Completed 10/14/1994, 03/30, 01/26/1991, Additional history exists Hepatitis B Vaccines Completed 04/18/2003, 04/26/2002, 05/19/2001 Meningococcal Vaccine Completed 01/14/2008 HIV Screening Completed 08/06/2021 Hepatitis C Screening Completed 08/06/2021 HPV Vaccines Aged Out No longer eligi ble based on patient's age to complete this topic Hepatitis A Vaccines Aged Out No long er eligible based on patient's age to complete this topic Meningococcal B Vaccine Aged Out No l onger eligible based on patient's age to complete this topic Pneumococcal Vaccine: Pediatrics (0 to 5 Years) and At-Risk Patients (6 to 49) Years) Aged Out No longer eligible based on patient's age to complete this topic RSV under 20 months Aged Out No longe r eligible based on patient's age to complete this topic Rotavirus Vaccines Aged Out No longer eligible based on patient's age to complete this topic Procedures Procedure Name Priority Date/Time Associated Diagnosis Comments ZZZ HISTORICAL HEPATITIS C AB W/REFL TO HCV [...] HEPATITIS C ANTIBODY NON-REACT CHRISTINA NON-REACT CHRISTINA [facility] INDEX 0.03 <1.00 [facility] Comment: ?? HCV antibody was non-reactive. There is no laboratory ?? evidence of HCV infection. ?? In most cases, no further action is required. However, if recent HCV exposure is suspected, a test for HCV RNA (test code 55986) is suggested. ?? For additional information please refer to http://education.Zonare Medical Systems/faq/XXX19f4 (This link is being provided for informational/ educational purposes only.) ?? 08/06/2021 10:4 3 AM EST us Peggy Coombs MD HISTORICAL/NON ORDERABLE LABS Final Result [facility] [address] * HIV 1/2 ANTIGEN/ANTIBODY,FOURTH GENERATION W/RFL (08/06/2021 10:43 AM EST) HIV-1/2 ANTIGEN AND ANTIBODIES, 4TH GENERATION W/ REFLEX NON-REACT CHRISTINA NON-REACT CHRISTINA [facility] Comment: HIV-1 antigen and HIV-1/HIV-2 [...] ? For additional information please refer to http://Mafengwo.[employer] Systems/faq/SLP198 (This link is being provided for informational/ educational purposes only.) ? The performance of this assay has not been clinically validated in patients less than 2 years old. ?? 08/06/2021 10:4 3 AM EST us Peggy Coombs MD LAB BLOOD ORDERABLES Final Res ult [facility] [address] * (ABNORMAL) LIPID PANEL, STANDARD (08/06/2021 [...] Jose Juan SHELDON et al. BOLIVAR. 2013;310(19): 4322-6433 ?? (http://Mafengwo.[employer]/faq/NTS164) Non-HDL Cholesterol 148(H) <130 mg/dL (calc) [facility] Comment: For patients with diabetes plus 1 major ASCVD risk ?? factor, treating to a non-HDL-C goal of <100 mg/dL ?? (LDL-C of <70 mg/dL) is considered a therapeutic ?? option. Triglycerides 174(H) <150 mg/dL [facility] 08/06/2021 10:4 3 AM EST us Peggy Coombs MD LAB BLOOD ORDERABLES Final Res ult [facility] [address] from Last 3 Months or Most Recently Relevant to Health Maintenance Insurance [facility] Care Teams Insurance Claim Representative Relationship Specialty Start Date End Date Peggy Coombs MD [address] [place] [id number] PCP - General Family Medicine 05/16/20
--- NOTE | 2024-11-14 16:03 | AM.OFFVISNUR ---
Intake Visit Reasons: MAT Allergies No Known Allergies Allergy (Verified 09/30/24 09:47) Results AMB 14 Panel Urine Drug Screen Urine Marijuana (THC) Negative Last Edit by Dena Preston CMA on 11/11/24 11:49 Urine Cocaine Positive Last Edit by Dena Preston, [facility] on 11/11/24 11:49 Urine Morphine Negative Last Edit by Dena Preston, [facility] on 11/11/24 11:49 Urine Methamphetamine Negative Last Edit by Dena Preston, [facility] on 11/11/24 11:49 Urine Amphetamine Negative Last Edit by Dena Preston, [facility] on 11/11/24 11:49 Urine Benzodiazepine Negative Last Edit by Dena Preston, [facility] on 11/11/24 11:49 Urine Barbiturates Negative Last Edit by Dena Preston, [facility] on 11/11/24 11:49 Urine Methadone Negative Last Edit by Dena Preston, [facility] on 11/11/24 11:49 Urine Buprenorphine Positive Last Edit by Dena Preston, [facility] on 11/11/24 11:49 Urine Tricyclic Antidepressant Negative Last Edit by Dena Preston, [facility] on 11/11/24 11:49 Urine MDMA Negative Last Edit by Dena Preston, [facility] on 11/11/24 11:49 Urine Oxycodone Negative Last Edit by Dena Preston, [facility] on 11/11/24 11:49 Urine Phencyclidine Negative Last Edit by Dena Preston, [facility] on 11/11/24 11:49 Urine Propoxyphene Negative Last Edit by Dena Preston, [facility] on 11/11/24 11:49 Assessment & Plan Assessment & Plan (1) Anxiety: Comment: general Code(s): F41.9 - Anxiety disorder, unspecified Category: Medical (2) Depression: Code(s): F32.A - Depression, unspecified Category: Medical (3) Cocaine use disorder, moderate, dependence: Comment: moderate daily use Code(s): F14.20 - Cocaine dependence, uncomplicated Category: Medical (4) Opioid use disorder: Comment: patient wishes to taper off suboxone he started taking one month ago Code(s): F11.90 - Opioid use, unspecified, uncomplicated Category: Medical Orders: Orders AMB 14 Panel Urine Drug Screen 11/11/24 Z51.81 - Encounter for therapeutic drug level monitoring Referrals Counseling Referral F32.A - Depression, unspecified, F41.9 - Anxiety disorder, unspecified Medications: Refilled hydroxyzine HCl 25 mg PO BID 28 tabs 3RF 14 days Coding Diagnoses Anxiety F41.9 Depression F32.A Cocaine use disorder, moderate, dependence F14.20 Opioid use disorder F11.90
== END 2024-11-11 12:50 | disposition home or self-care (01) ==
LOC: HO.HCC 11:24
PROVIDERS: Visit Provider Internal Medicine
DX: F14.20 Cocaine dependence, uncomplicated (principal); F11.90 Opioid use, unspecified, uncomplicated; Z51.81 Encounter for therapeutic drug level monitoring
CPT/HCPCS: 99213

== ENCOUNTER → 2024-11-11 11:23 | Outpatient (BNVA) | payer OTHER, SELFPAY | PROVIDERS: Visit Provider Internal Medicine | DX: F41.9 Anxiety disorder, unspecified (principal); F32.A Depression, unspecified; F14.20 Cocaine dependence, uncomplicated; F11.90 Opioid use, unspecified, uncomplicated | CPT/HCPCS: 80307; 99212 ==

== ENCOUNTER 2024-11-19 12:40 | Emergency (ER) | payer OTHER, SELFPAY ==
[2024-11-19 12:43] VITALS: BP 147/71; PULSE 114; RESP 18; TEMP 36.5; O2SAT 100; BMI 32.9
--- NOTE | 2024-11-19 12:49 | ED_ITS ---
HPI - General Adult General Chief complaint: Psychiatric Symptoms Stated complaint: depressed Time Seen by Provider: 11/19/24 13:08 Source: patient Mode of arrival: ambulatory Limitations: no limitations History of Present Illness ED Provider: Priti Martinez PA-C HPI narrative: Patient is a 34 year old assigned male at with a history of anxiety, depression, opiate use disorder, and cocaine use disorder presenting to the emergency department today with increased depression and requesting to get help with sobriety from cocaine. Patient states that he is feeling more depressed but has not thought of hurting himself or others. Patient denies any dizziness, lightheadedness, abdominal pain, nausea, vomiting, fever, chills, blurry vision, double vision, loss of vision, chest pain, difficulty breathing, shortness of breath, back pain, night sweats, pain with urination, increased urinary frequency, increased urinary urgency, blood in his urine or stool, syncope or a near syncopal episode, recent trauma or falls, bowel incontinence, bladder incontinence, or any other complaints at this time. Relieving factors: none Exacerbating factors: none Associated symptoms: denies other symptoms Treatments prior to arrival: none Related Data Previous Rx's ?Medication ?Instructions ?Recorded buprenorphine 2 mg-naloxone 0.5 mg 1 film sublingual DAILY 14 days 09/30/24 sublingual film (Suboxone) #14 ea bupropion HCl 150 mg 24 hr tablet, 150 mg PO QAM 30 days #30 tabs 09/30/24 extended release (Wellbutrin XL) hydroxyzine HCl 25 mg tablet 25 mg PO BID 14 days #28 tabs 11/11/24 Allergies Allergy/AdvReac Type Severity Reaction Status Date / Time No Known Allergies Allergy Verified 11/19/24 12:46 Review of Systems 2 Constitutional: Constitutional: Reports no additional constitutional complaints, Denies chills, Denies fever(s) and Denies night sweats Eyes: Eyes: Reports no additional eye complaints, Denies blurry vision, Denies change in vision, Denies diplopia, Denies eye discharge, Denies loss of vision and Denies eye pain ENT: Denies dizziness Cardiovascular: Cardiovascular: Reports no additional cardiovascular complaints, Denies chest pain, Denies lightheadedness, Denies Loss of Consciousness and Denies dyspnea Respiratory: Respiratory: Reports no additional respiratory complaints and Denies dyspnea Gastrointestinal: Gastrointestinal: Reports no additional gastrointestinal complaints, Denies abdominal pain, Denies melena, Denies hematochezia, Denies change in bowel habits and Denies change in stool character Genitourinary: Genitourinary: Reports no additional male genitourinary complaints, Denies hematuria, Denies oliguria, Denies difficulty urinating, Denies dysuria, Denies urinary frequency, Denies urinary hesitancy, Denies urinary incontinence and Denies urinary urgency Musculoskeletal: Musculoskeletal: Reports no additional musculoskeletal complaints, Denies numbness and Denies tingling Neurologic: Denies dizziness, Denies loss of vision, Denies numbness and Denies tingling Psychiatric: Psychiatric: Reports depression, Denies homicidal ideation and Denies suicidal ideation Endocrine: Endocrine: Reports no additional endocrine complaints Hematologic/Lymphatic: Hematologic/Lymphatic: Reports no additional hematologic/lymphatic complaints Allergic/Immunologic: Allergic/Immunologic: Reports no additional allergic/immunologic complaints PMFSH Past Medical History Attestation statement: The following information was validated with the patient. Source: old records reviewed and nursing notes reviewed Medical History Anxiety Depression Surgical defect of lip Tobacco use disorder Mild benzodiazepine use disorder Opioid use disorder Insomnia Cocaine use disorder, moderate, dependence No known health problems Surgical History History of appendectomy Family History Family History Father No problems noted. Father No problems noted. Mother Health problem in family Social History Social History Alcohol intake: current Alcohol intake frequency: a few times a month Comment: weekend 1=2 standard drinks Patient Tobacco Use Status: Current everyday Tobacco user Cigarette Packs Per Day: 0.5 Cigarettes Per Day: 10 Years Smoked: 10 Smoked in Last 30 Days: No e-Cigarette/Vaping Use: Never Used Second Hand Smoke Exposure: No Use of substances other than those prescribed or required for medical reasons: Yes Substance Use Type: Crack/Cocaine Substance Use Frequency: Daily Last Used Substance: Hours (ago) Any prior treatment program specific to substance use: No Advance Directives: No Advance Directives Information Provided: No Physical Exam ED Vital Signs: Vital Signs - 24 hr 11/19/24 12:43 11/19/24 13:58 Temperature 97.7 F 97.7 F Pulse Rate 114 H 114 H Respiratory Rate 18 18 Blood Pressure 147/71 H 147/71 H Pulse Oximetry 100 98 Oxygen Delivery Method Room Air Room Air BMI result Body Mass Index 32.9 Const General: cooperative, no acute distress, alert and awake Nutritional Appearance: well nourished Orientation/consciousness: patient oriented x3 HENMT Head: Yes normal to inspection and Yes atraumatic Ears: hearing grossly normal bilaterally and external ears normal General nose exam: Normal external nose present, no nasal discharge noted and no epistaxis Face and sinus: Yes normal facial exam, No abrasion and No laceration Mouth: Normal oral and palatal mucosa present, no drooling and no muffled voice Eyes General: appearance normal, both eyes and all related structures Periorbital: periorbital findings normal Eyelids: Yes eyelids normal Conjunctivae: conjunctivae normal Pupils: Equal, round and reactive pupils present EOM: EOMs intact bilaterally Neck Neck: Yes normal visual inspection, Yes full ROM and Yes no lymphadenopathy Resp Effort & Inspection: normal respiratory effort and able to speak in complete sentences Neuro General: patient oriented x3, moves all extremities and CN's II-XI intact bilaterally Cranial nerves: Yes Equal, round and reactive pupils present Cognition (Neuro): normal cognition Extrem General: Yes normal to inspection, Yes full ROM and Yes capillary refill normal Psych Affect: Labile affect present Thought content: suicidality and no homicidality Course Course Course Narrative: RME, this is a rapid medical exam performed by Vince Howell please refer to primary provider for complete H&P- 34-year-old male presents for evaluation of depression and polysubstance abuse. He denies any suicidal ideation. Plan for medical clearance and care team consult Medical Decision Making Medical Decision Making MDM Narrative: Patient is a 34 year old assigned male at with a history of anxiety, depression, opiate use disorder, and cocaine use disorder presenting to the emergency department today with increased depression and requesting to get help with sobriety from cocaine. Patient's physical exam was as noted in the physical exam portion of this note. Patient's blood work was unremarkable. Patient's urine showed no acute process. Patient's EKG was unremarkable. I explained my physical exam findings as well as all test results to the patient. I answered all questions asked by the patient. Patient's disposition is pending CARE team evaluation. Patient will remain in observation until CARE team evaluation. Patient was evaluated by the CARE team who recommended discharge with outpatient recovery resources. Observation care revealed the the patient does not meet medical necessity for hospitalization. Final disposition discussed with the patient and the patient's girlfriend who verbalized understanding and agreement. Patient completed observation care at 1830, total time spent in observation care was 4 hours and 40 minutes. Differential Diagnosis Differential Diagnoses: The differential diagnosis associated with the presentation includes Depression Cocaine use / abuse Admission/Observation Consideration of admission/observation: Escalation of care including admission/observation considered Patient would have been admitted to the hospital had his work up had any findings where hospital admission was appropriate and his clinical presentation warranted hospital admission. Consult Healthcare Provider Management of the patient was discussed with: Behavioral Health Provider (I spoke with the CARE team as noted in the MDM Rationale portion of this note. ) Lab Data MDM Lab Attestation statement: I reviewed the patient's lab results. My interpretation of these results are in the MDM Rationale portion of this note. 11/19/24 13:31 11/19/24 13:31 Labs: Lab Results 11/19/24 11/19/24 Range/Units 13:31 14:08 WBC 11.2 H (4.8-10.8) X10*3/uL RBC 4.50 L (4.60-5.80) X10*6/uL Hgb 13.9 L (14.0-18.0) g/dl Hct 41.0 L (42.0-52.0) % MCV 91.1 (80.0-98.0) fL MCH 30.9 (27.0-33.0) pg MCHC 33.9 (31.0-36.0) g/dl RDW 13.5 (11.0-16.0) % Plt Count 360 (160-400) X10*3/uL MPV 8.5 L (9.4-12.4) fL Immature Gran % (Auto) 0.5 H (0.0-0.4) % Neut % (Auto) 67.6 (45-73) % Lymph % (Auto) 21.0 (20-40) % [place]ley % (Auto) 9.6 (2-11) % Eos % (Auto) 1.0 (0-4) % Baso % (Auto) 0.3 (0-2) % Lymph # (Auto) 2.3 (1.2-4.9) X10*3/uL [place] # (Auto) 1.1 (0.1-1.2) X10*3/uL Eos # (Auto) 0.1 (0.0-0.4) X10*3/uL Baso # (Auto) 0.0 (0.0-0.2) X10*3/uL Abs Immat Gran (auto) 0.06 H (0.00-0.03) X10*3/uL Absolute Neuts (auto) 7.6 (2.0-8.3) x10*3/uL Absolute Nucleated RBC 0.000 (0.0-0.012) X10*3/uL Nucleated RBC % (auto) 0.0 (0.0-0.2) /100WBC Sodium 140 (135-145) mmol/L Potassium 3.7 (3.3-5.1) mmol/L Chloride 104 (96-108) mmol/L Carbon Dioxide 27 (22-29) mmol/L Anion Gap 13 (12-20) BUN 13 (9-16) mg/dL Creatinine 0.85 (0.5-1.4) mg/dL Estim Creat Clear Calc 112.2 Estimated GFR > 60 Random Glucose 99 (60-115) mg/dL Calcium 8.9 D (8.4-10.2) mg/dL Total Bilirubin 0.5 (0.0-1.0) mg/dL AST 24 (5-37) U/L ALT 18 (0-40) U/L Alkaline Phosphatase 96 (39-117) U/L Total Protein 7.9 (6.5-8.0) g/dL Albumin 4.6 (3.5-5.0) g/dL Urine Color Yellow Urine Appearance Clear Urine pH 7.5 (5.0-9.0) Ur Specific [place] 1.020 (1.005-1.025) Urine Protein Trace (Neg-Trace) mg/dL Urine Glucose (UA) Negative (Negative) mg/dL Urine Ketones Trace (Negative) mg/dL Urine Blood Negative (Negative) Urine Nitrite Negative (Negative) Ur Leukocyte Esterase Negative (Negative) Salicylates < 5.0 L (15-30) mg/dL Urine Opiates Screen Not Detected (Not Detect) Ur Buprenorphine Scrn Positive H (Not Detect) ng/mL Ur Oxycodone Screen Not Detected (Not Detect) ng/mL Urine Methadone Screen Not Detected (Not Detect) ng/mL Urine Fentanyl Screen Not Detected (Not Detect) Acetaminophen < 3 (<30) mcg/mL Ur Barbiturates Screen Not Detected (Not Detect) Ur Phencyclidine Scrn Not Detected (Not Detect) Ur Amphetamines Screen Not Detected (Not Detect) U Benzodiazepines Scrn Not Detected (Not Detect) Urine Cocaine Screen POSITIVE H (Not Detect) U Marijuana (THC) Screen Not Detected (Not Detect) Ethyl Alcohol 13 mg/dL Independent Interpretation I performed an independent interpretation of an: EKG Interpretation: I independently interpreted this EKG and am in agreement with the below findings: Vent. Rate: 101 BPM Atrial Rate: 101 BPM P-R Int: 134 ms QRS Dur: 94 ms QT Int: 356 ms P-R-T Axes: 52 70 55 degrees QTcB Int: 461 ms Sinus tachycardia Otherwise normal ECG When compared with ECG of 29-May-2015 15:17, No significant change was found DD/ 1359 Radiology Impression Discussion of test interpretation with radiology: I have reviewed the radiologist's reading. Independent Historian Clinical information obtained from an independent historian. History obtained from or confirmed by: Other (patient's girlfriend provided additional history and confirmed the history provided by the patient.) Critical Care Time Critical Care Time Critical Care Time: Yes Total Critical Care Time: 34 Attestation: I spent 34 minutes of Critical Care Time with this patient. This does not include time spent on separately reported billable procedures. Discharge Plan Discharge Clinical Impression: Depression, Cocaine abuse Patient Disposition: Home, Self-Care Instructions: Cocaine Use Disorder (ED), Depression (ED) Additional Instructions: You were seen in our Emergency Department today for a concern regarding your mental / behavioral behavioral health. It is important after this visit today that you follow up with either your mental / behavioral health or primary care provider within 7 days (from today).? Return for any worsening symptoms or concerns such as thoughts of harming yourself or others. Please call 911 immediately if you feel your mental health is worsening.? National Suicide and Crisis Lifeline: Available 24 hours a day, 7 days a week, 365 days a year Dial 988 with any telephone to speak to someone immediately [facility] (Mental / Behavioral health therapist: [address] [place] [address] [facility]: [address] [place] [address] Open from 10am - 12pm (walk ins welcome) [facility] Crisis Services: [address] [place] [address] Walk in hours from 10am - 12pm Behavioral health Network: [address] [place] [address] [place] [id number] Thursday through Thursday 8am - 8pm Thursday and Thursday 9am - 5pm Follow up with your primary care provider and the treatment referrals you were given by the CARE team. Return to the emergency department immediately if your symptoms worsen or if you develop any numbness, tingling, dizziness, shortness of breath, difficulty breathing, chest pain, blurry vision, loss of vision, nausea, vomiting, abdominal pain, fever, chills, back pain, or any other complaints. Please see the information below about our Patient Portal. If you are not yet enrolled in the [facility] Patient Portal, you will receive an enrollment email invitation following your visit to any [facility] setting. You may also self-enroll in the Patient Portal by visiting our website: [email or web address] The following information is required to access the Patient Portal: - Your [facility] Medical Record Number - Your personal home email address (must match what is in your electronic medical record, Registration staff can assist with this) - Name - Date of Capabilities of the Patient Portal: - Message some providers - View upcoming appointments - Access your health summary, medical history, and visit history - View current conditions and allergies - View procedure and lab results - View your medications, including guidelines, side effects, and precautions - Complete pre-appointment questionnaires requested by your provider - Ready summary reports of your office visits and procedures To access the Patient Portal Mobile [employer]von, follow these directions: - Search Amara in the Ivon Store or [employer] Store - Download the Ivon - Search for [facility] - Enter your login/password Prescriptions: No Action buprenorphine-naloxone [Suboxone] 2-0.5 mg film 1 film sublingual DAILY 14 Days Qty: 14 0RF Rx Instructions: place 1 strip/tab under (each) side of tongue bupropion HCl [Wellbutrin XL] 150 mg tablet extended release 24 hr 150 mg PO QAM 30 Days Qty: 30 1RF hydroxyzine HCl 25 mg tablet 25 mg PO BID 14 Days Qty: 28 3RF Referrals: [facility] [Primary Care Provider] - Interventions: [place]-Suicide Risk Severity Scale Last Done: 11/19/24 12:49 Print Language: Yemeni
--- NOTE | 2024-11-19 13:12 | PC.NURSE ---
assumed care of pt at approximately 1255. no apparent distress.
[2024-11-19 13:39] LABS: MANUAL DIFF FLAG NO
[2024-11-19 13:40] LABS: Basophils Percent Auto 0.3 % (0-2); Eosinophils Absolute Auto 0.1 X10*3/uL (0.0-0.4); Hemoglobin 13.9 g/dl (14.0-18.0); Imm Gran Abs Auto 0.06 X10*3/uL (0.00-0.03); Imm Gran Pct Auto 0.5 % (0.0-0.4); Lymphocytes Absolute Auto 2.3 X10*3/uL (1.2-4.9); Mean Corpuscular HGB Conc 33.9 g/dl (31.0-36.0); Mean Corpuscular Hemoglobin 30.9 pg (27.0-33.0); Mean Corpuscular Volume 91.1 fL (80.0-98.0); Mean Platelet Volume 8.5 fL (9.4-12.4); Monocytes Absolute Auto 1.1 X10*3/uL (0.1-1.2); Monocytes Percent Auto 9.6 % (2-11); Neutrophils Absolute Auto 7.6 x10*3/uL (2.0-8.3); Neutrophils Percent Auto 67.6 % (45-73); Platelet Count 360 X10*3/uL (160-400); Red Cell Distribution Width 13.5 % (11.0-16.0); White Blood Count 11.2 X10*3/uL (4.8-10.8)
--- NOTE | 2024-11-19 13:49 | ECG_ITS ---
Test Reason : qtc check Blood Pressure : */* mmHG Vent. Rate : 101 BPM Atrial Rate : 101 BPM P-R Int : 134 ms QRS Dur : 94 ms QT Int : 356 ms P-R-T Axes : 52 70 55 degrees QTcB Int : 461 ms Sinus tachycardia Otherwise normal ECG When compared with ECG of 29-May-2015 15:17, No significant change was found Referred By: Priti Martinez Electronically Signed By: Lennox Gudino
[2024-11-19 13:53] LABS: Alanine Aminotransferase 18 U/L (0-40); Albumin Level 4.6 g/dL (3.5-5.0); Alkaline Phosphatase 96 U/L (39-117); Anion Gap 13 (12-20); Aspartate Amino Transferase 24 U/L (5-37); Bilirubin Total 0.5 mg/dL (0.0-1.0); Blood Urea Nitrogen 13 mg/dL (9-16); Calcium 8.9 mg/dL (8.4-10.2); Carbon Dioxide 27 mmol/L (22-29); Chloride 104 mmol/L (96-108); Creatinine Clr Calc Pharmacy 112.2; Estimated Glomerular Filt Rate > 60; Ethanol 13 mg/dL; Glucose Random 99 mg/dL (60-115); Potassium 3.7 mmol/L (3.3-5.1); Sodium 140 mmol/L (135-145); Total Protein 7.9 g/dL (6.5-8.0)
[2024-11-19 13:58] VITALS: BP 147/71; PULSE 114; RESP 18; TEMP 36.5; O2SAT 98
[2024-11-19 14:03] LABS: Acetaminophen LAB < 3 mcg/mL (<30); Salicylate < 5.0 mg/dL (15-30)
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
[2024-11-19 14:16] LABS: Appearance Urine Clear; Color Urine Yellow; Glucose Urine UA Negative (Negative); Leukocyte Esterase Urine Negative (Negative); Nitrite Urine Negative (Negative); PH 7.5 (5.0-9.0); Urine Blood Negative (Negative); Urine Ketones Trace mg/dL (Negative); Urine Protein Trace mg/dL (Neg-Trace)
[2024-11-19 14:29] LABS: Amphetamine Screen Urine Not Detected (Not Detect); Barbiturates, Urine Not Detected (Not Detect); Benzodiazepines Screen Urine Not Detected (Not Detect); Buprenorphine Scr Positive (Not Detect); Cannabinoid Screen Urine Not Detected (Not Detect); Cocaine Screen Urine POSITIVE (Not Detect); Fentanyl, urine Not Detected (Not Detect); Methadone Screen, Urine Not Detected (Not Detect); Opiate Screen Urine Not Detected (Not Detect); Oxycodone Screen Urine Not Detected (Not Detect); Phencyclidine Screen Urine Not Detected (Not Detect)
[2024-11-19 18:33] VITALS: BP 147/71; PULSE 114; RESP 18; TEMP 36.5; O2SAT 98
[2024-11-19 18:39] VITALS: BP 125/70; PULSE 92; RESP 16; TEMP 36.8; O2SAT 98
== END 2024-11-19 18:55 | disposition home or self-care (01) ==
PROVIDERS: Physician Assistant; Emergency Provider Emergency Medicine
DX: F33.1 Major depressive disorder, recurrent, moderate (principal); F14.10 Cocaine abuse, uncomplicated; F17.210 Nicotine dependence, cigarettes, uncomplicated; R00.0 Tachycardia, unspecified; Z51.81 Encounter for therapeutic drug level monitoring; Z79.899 Other long term (current) drug therapy
CPT/HCPCS: 36415; 80053; 80143; 80179; 80307; 81003; 85025; 93005; 99284; 99285; S9485

== ENCOUNTER → 2024-11-19 13:49 | Outpatient (BNV) | payer OTHER, SELFPAY | PROVIDERS: Emergency Provider Emergency Medicine; Visit Provider Internal Medicine Cardiovascular Disease | DX: R00.0 Tachycardia, unspecified (principal) | CPT/HCPCS: 93010 ==

== ENCOUNTER 2024-11-21 19:37 | Emergency (ER) | payer OTHER, SELFPAY ==
--- NOTE | 2024-11-21 19:39 | ED.GENADULT ---
HPI - General Adult General Chief complaint: ETOH/Substance Use Stated complaint: substance abuse told to return for bed (2days ago) Time Seen by Provider: 11/21/24 21:10 Source: patient Mode of arrival: ambulatory Limitations: no limitations History of Present Illness ED Provider: HPI narrative: Patient's history of depression cocaine abuse been more depressed lately was seen here few days ago for same taking antidepressant on 1 month feel more depressed as his uncle overdosed himself a month ago patient's uses cocaine drinks alcohol does have a job and home to stay never been to detox or psych admission before ,waiting for the therapist Related Data Previous Rx's ?Medication ?Instructions ?Recorded buprenorphine 2 mg-naloxone 0.5 mg 1 film sublingual DAILY 14 days 09/30/24 sublingual film (Suboxone) #14 ea bupropion HCl 150 mg 24 hr tablet, 150 mg PO QAM 30 days #30 tabs 09/30/24 extended release (Wellbutrin XL) hydroxyzine HCl 25 mg tablet 25 mg PO BID 14 days #28 tabs 11/11/24 Allergies Allergy/AdvReac Type Severity Reaction Status Date / Time No Known Allergies Allergy Verified 11/21/24 19:42 Review of Systems Review of Systems: Yes all other systems are reviewed and are negative PMFSH Past Medical History Medical History Anxiety Depression Surgical defect of lip Tobacco use disorder Mild benzodiazepine use disorder Opioid use disorder Insomnia Cocaine use disorder, moderate, dependence No known health problems Surgical History History of appendectomy Family History Family History Father No problems noted. Father No problems noted. Mother Health problem in family Social History Social History Alcohol intake: current Alcohol intake frequency: a few times a month Comment: weekend 1=2 standard drinks Patient Tobacco Use Status: Current everyday Tobacco user Cigarette Packs Per Day: 0.5 Cigarettes Per Day: 10 Years Smoked: 10 Smoked in Last 30 Days: No e-Cigarette/Vaping Use: Never Used Second Hand Smoke Exposure: No Substance Use Type: Crack/Cocaine Advance Directives: No Advance Directives Information Provided: Yes Do you have a plan to hurt others: No Plan Physical Exam ED Vital Signs: Vital Signs - 24 hr 11/21/24 19:40 11/21/24 21:08 11/22/24 06:00 Temperature 97.0 F 97.0 F 98.6 F Pulse Rate 88 74 76 Respiratory Rate 16 16 16 Blood Pressure 125/86 140/65 H 119/65 Pulse Oximetry 98 96 97 Oxygen Delivery Method Room Air Nasal Cannula Room Air Room Air 11/22/24 13:55 Temperature 98.0 F Pulse Rate 92 Respiratory Rate 16 Blood Pressure 119/69 Pulse Oximetry 99 Oxygen Delivery Method Room Air BMI result Body Mass Index 32.5 Appearance: Alert. Oriented X3. No acute distress. Eyes: PERRLA, No Nystagmus ENT: Pharynx normal. Oral Mucosa moist Neck: Normal inspection. Neck supple. CVS: Normal heart rate and rhythm. Pulses normal. Respiratory: No respiratory distress. Equal air entry bilateral, no wheezing/rales/rhonchi Abdomen: Soft and nontender. Bowel sounds are present, no mass palpable, no CVA tenderness Skin: Skin warm and dry. Normal skin color. Normal skin turgor. Extremities: No lower extremity edema. No calf tenderness psych: Feel depressed denies any SI HI no delusional Neuro: Oriented X 3. No motor deficit. No sensory deficit.No cerebellar signs , cranial nerves II-XII intact Course Course Course Narrative: RME, this is a rapid medical exam performed by Vince Howell please refer to primary provider for complete H&P- 34 year old male presents for evaluation of substance abuse. He is interested in detox from cocaine. He reports last using yesterday. Plan for medical clearance and consideration for detox Reevaluation(s) Reevaluation #1: 11/22/2024: DR. Bernstein's progress note: No SI, no HI, no hallucination, patient will be going to respite, feels safe to be discharged to respite. Discontinue physician observation now. Time: 16:10 Medications Administered Generic Name Dose Route Start Last Admin Trade Name Freq PRN Reason Stop Dose Admin Buprenorphine/Naloxone 1 film 11/23/24 09:00 11/22/24 13:26 Buprenorphine/Naloxone 2/0.5mg Film SUBLINGUAL 1 film DAILY ELLY Administration Bupropion HCl 150 mg 05/27/25 13:00 11/22/24 13:26 Bupropion Hcl Xl 150 Mg Tab.Er.24h PO 150 mg DAILY ELLY Administration Medical Decision Making Medical Decision Making [facility] Narrative: Patient's history of cocaine use with depression on Wellbutrin and Suboxone seen by care team plan for respite placement tomorrow Lab Data [facility] Lab Attestation statement: I reviewed the patient's lab results. 11/21/24 19:54 11/21/24 19:54 Labs: Lab Results 11/21/24 11/21/24 Range/Units 19:54 22:11 WBC 9.8 (4.8-10.8) X10*3/uL RBC 4.16 L (4.60-5.80) X10*6/uL Hgb 13.2 L (14.0-18.0) g/dl Hct 38.4 L (42.0-52.0) % MCV 92.3 (80.0-98.0) fL MCH 31.7 (27.0-33.0) pg MCHC 34.4 (31.0-36.0) g/dl RDW 13.4 (11.0-16.0) % Plt Count 324 (160-400) X10*3/uL MPV 8.4 L (9.4-12.4) fL Immature Gran % (Auto) 0.4 (0.0-0.4) % Neut % (Auto) 60.3 (45-73) % Lymph % (Auto) 25.4 (20-40) % [place] % (Auto) 11.5 H (2-11) % Eos % (Auto) 2.0 (0-4) % Baso % (Auto) 0.4 (0-2) % Lymph # (Auto) 2.5 (1.2-4.9) X10*3/uL [place] # (Auto) 1.1 (0.1-1.2) X10*3/uL Eos # (Auto) 0.2 (0.0-0.4) X10*3/uL Baso # (Auto) 0.0 (0.0-0.2) X10*3/uL Abs Immat Gran (auto) 0.04 H (0.00-0.03) X10*3/uL Absolute Neuts (auto) 5.9 (2.0-8.3) x10*3/uL Absolute Nucleated RBC 0.000 (0.0-0.012) X10*3/uL Nucleated RBC % (auto) 0.0 (0.0-0.2) /100WBC Sodium 139 (135-145) mmol/L Potassium 3.6 (3.3-5.1) mmol/L Chloride 102 (96-108) mmol/L Carbon Dioxide 28 (22-29) mmol/L Anion Gap 13 (12-20) BUN 14 (9-16) mg/dL Creatinine 0.93 (0.5-1.4) mg/dL Estim Creat Clear Calc 101.9 Estimated GFR > 60 Random Glucose 92 (60-115) mg/dL Calcium 8.8 (8.4-10.2) mg/dL Total Bilirubin 0.2 (0.0-1.0) mg/dL AST 17 (5-37) U/L ALT 23 (0-40) U/L Alkaline Phosphatase 92 (39-117) U/L Total Protein 7.5 (6.5-8.0) g/dL Albumin 4.4 (3.5-5.0) g/dL Urine Color Yellow Urine Appearance Clear Urine pH 6.0 (5.0-9.0) Ur Specific [place] 1.020 (1.005-1.025) Urine Protein Negative (Neg-Trace) mg/dL Urine Glucose (UA) Negative (Negative) mg/dL Urine Ketones Negative (Negative) mg/dL Urine Blood Trace H (Negative) Urine Nitrite Negative (Negative) Ur Leukocyte Esterase Negative (Negative) Urine RBC 3-5 H (0-2) /HPF Urine WBC 0-5 (0-5) /HPF Ur Squamous Epith Cells 0-2 (0-2) /HPF Urine Bacteria None Seen (None Seen) Hyaline Casts 0-2 (0-2) /LPF Urine Opiates Screen Not Detected (Not Detect) Ur Buprenorphine Scrn Positive H (Not Detect) ng/mL Ur Oxycodone Screen Not Detected (Not Detect) ng/mL Urine Methadone Screen Not Detected (Not Detect) ng/mL Urine Fentanyl Screen Not Detected (Not Detect) Ur Barbiturates Screen Not Detected (Not Detect) Ur Phencyclidine Scrn Not Detected (Not Detect) Ur Amphetamines Screen Not Detected (Not Detect) U Benzodiazepines Scrn Not Detected (Not Detect) Urine Cocaine Screen POSITIVE H (Not Detect) U Marijuana (THC) Screen Not Detected (Not Detect) Ethyl Alcohol < 10 mg/dL Discharge Plan Discharge Clinical Impression: Cocaine use disorder, moderate, dependence, Depression Patient Disposition: Xfer SNF Instructions: Depression (ED) Prescriptions: No Action buprenorphine-naloxone [Suboxone] 2-0.5 mg film 1 film sublingual DAILY 14 Days Qty: 14 0RF Rx Instructions: place 1 strip/tab under (each) side of tongue bupropion HCl [Wellbutrin XL] 150 mg tablet extended release 24 hr 150 mg PO QAM 30 Days Qty: 30 1RF hydroxyzine HCl 25 mg tablet 25 mg PO BID 14 Days Qty: 28 3RF Referrals: [facility] [Primary Care Provider] - Print Language: Citizen Of [place]
[2024-11-21 19:40] VITALS: BP 125/86; PULSE 88; RESP 16; TEMP 36.1; O2SAT 98; BMI 32.5
--- NOTE | 2024-11-21 19:41 | ECG_ITS ---
Test Reason : ETOH Blood Pressure : */* mmHG Vent. Rate : 89 BPM Atrial Rate : 89 BPM P-R Int : 132 ms QRS Dur : 96 ms QT Int : 372 ms P-R-T Axes : 31 56 42 degrees QTcB Int : 452 ms Normal sinus rhythm Normal ECG When compared with ECG of 19-Nov-2024 13:59, No significant change was found Referred By: Carter Howell Electronically Signed By: Lennox Gudino
[2024-11-21 19:58] LABS: MANUAL DIFF FLAG NO
[2024-11-21 20:01] LABS: Basophils Percent Auto 0.4 % (0-2); Eosinophils Absolute Auto 0.2 X10*3/uL (0.0-0.4); Hematocrit 38.4 % (42.0-52.0); Hemoglobin 13.2 g/dl (14.0-18.0); Imm Gran Abs Auto 0.04 X10*3/uL (0.00-0.03); Imm Gran Pct Auto 0.4 % (0.0-0.4); Lymphocytes Absolute Auto 2.5 X10*3/uL (1.2-4.9); Lymphocytes Percent Auto 25.4 % (20-40); Mean Corpuscular HGB Conc 34.4 g/dl (31.0-36.0); Mean Corpuscular Hemoglobin 31.7 pg (27.0-33.0); Mean Corpuscular Volume 92.3 fL (80.0-98.0); Mean Platelet Volume 8.4 fL (9.4-12.4); Monocytes Absolute Auto 1.1 X10*3/uL (0.1-1.2); Monocytes Percent Auto 11.5 % (2-11); Neutrophils Absolute Auto 5.9 x10*3/uL (2.0-8.3); Neutrophils Percent Auto 60.3 % (45-73); Platelet Count 324 X10*3/uL (160-400); Red Blood Count 4.16 X10*6/uL (4.60-5.80); Red Cell Distribution Width 13.4 % (11.0-16.0); White Blood Count 9.8 X10*3/uL (4.8-10.8)
[2024-11-21 20:18] LABS: Alanine Aminotransferase 23 U/L (0-40); Albumin Level 4.4 g/dL (3.5-5.0); Alkaline Phosphatase 92 U/L (39-117); Anion Gap 13 (12-20); Aspartate Amino Transferase 17 U/L (5-37); Bilirubin Total 0.2 mg/dL (0.0-1.0); Blood Urea Nitrogen 14 mg/dL (9-16); Calcium 8.8 mg/dL (8.4-10.2); Carbon Dioxide 28 mmol/L (22-29); Chloride 102 mmol/L (96-108); Creatinine Clr Calc Pharmacy 101.9; Estimated Glomerular Filt Rate > 60; Ethanol < 10 mg/dL; Glucose Random 92 mg/dL (60-115); Potassium 3.6 mmol/L (3.3-5.1); Sodium 139 mmol/L (135-145); Total Protein 7.5 g/dL (6.5-8.0)
[2024-11-21 21:08] VITALS: BP 140/65; PULSE 74; RESP 16; TEMP 36.1; O2SAT 96
[2024-11-21 22:19] LABS: Appearance Urine Clear; Color Urine Yellow; Glucose Urine UA Negative (Negative); Leukocyte Esterase Urine Negative (Negative); Nitrite Urine Negative (Negative); UMIC TRIGGER UACC YES; Urine Blood Trace (Negative); Urine Ketones Negative (Negative); Urine Protein Negative (Neg-Trace)
[2024-11-21 22:22] LABS: Bacteria Urine None Seen (None Seen); Hyaline Casts Urine 0-2 /LPF (0-2); Squamous Epithelial Cell Urine 0-2 /HPF (0-2); WBC Urine 0-5 /HPF (0-5)
[2024-11-21 22:28] LABS: Amphetamine Screen Urine Not Detected (Not Detect); Barbiturates, Urine Not Detected (Not Detect); Benzodiazepines Screen Urine Not Detected (Not Detect); Buprenorphine Scr Positive (Not Detect); Cannabinoid Screen Urine Not Detected (Not Detect); Cocaine Screen Urine POSITIVE (Not Detect); Fentanyl, urine Not Detected (Not Detect); Methadone Screen, Urine Not Detected (Not Detect); Opiate Screen Urine Not Detected (Not Detect); Oxycodone Screen Urine Not Detected (Not Detect); Phencyclidine Screen Urine Not Detected (Not Detect)
--- NOTE | 2024-11-21 23:30 | PC.NURSE ---
pt brought over by NATHALIA Pérez, xavier collected sent, medication count and sealed with charge nurse Elisa
[2024-11-22 06:00] VITALS: BP 119/65; PULSE 76; RESP 16; TEMP 37; O2SAT 97
--- NOTE | 2024-11-22 09:14 | MHC.CARE ---
0913 - CARE TEAM CALLED [facility] TO INQUIRE ABOUT THE STATUS OF PT'S ACCS REFERRAL. REFERRAL IS RECEIVED, HAS BEEN CLINICALLY APPROVED AND IS AWAITING APPROVAL BY NURSING.
--- NOTE | 2024-11-22 11:17 | MHC.CARE ---
Patient accepted to [facility] for 4:30 pm today.
--- NOTE | 2024-11-22 12:08 | PC.NURSE ---
Pt has been resting/sleeping most of am. Was calm speaking with RN. Aware of plan for respite bed and states he doesn't drink heavily and has never had issues with withdrawal. No tremor noted. NAD. Ate partial breakfast.
--- NOTE | 2024-11-22 12:55 | PHA.MEDREC ---
Pharmacy Consult ? Medication Reconciliation Pharmacy has reviewed the medication reconciliation completed by nursing. me list matches claims.
[2024-11-22] MEDS: Buprenorphine/Naloxone 2/0.5mg FILM 1 FILM SUBLINGUAL (13:26)
[2024-11-22] MEDS: buPROPion HCl XL 150 MG TAB.ER.24H PO (13:26)
[2024-11-22 13:55] VITALS: BP 119/69; PULSE 92; RESP 16; TEMP 36.7; O2SAT 99
[2024-11-22 16:19] VITALS: BP 119/69; PULSE 92; RESP 16; TEMP 36.7; O2SAT 99
== END 2024-11-22 16:20 | disposition skilled nursing facility (03) ==
PROVIDERS: Physician Assistant; Emergency Provider Internal Medicine
DX: F32.A Depression, unspecified (principal); F14.20 Cocaine dependence, uncomplicated; F41.9 Anxiety disorder, unspecified; F13.10 Sedative, hypnotic or anxiolytic abuse, uncomplicated; F19.10 Other psychoactive substance abuse, uncomplicated; F11.20 Opioid dependence, uncomplicated; F17.210 Nicotine dependence, cigarettes, uncomplicated; Z79.899 Other long term (current) drug therapy
CPT/HCPCS: 36415; 80053; 80307; 81001; 85025; 93005; 99285; S9485

== ENCOUNTER → 2024-11-21 19:41 | Outpatient (BNV) | payer OTHER, SELFPAY | PROVIDERS: Emergency Provider Internal Medicine; Visit Provider Internal Medicine Cardiovascular Disease | DX: F10.90 Alcohol use, unspecified, uncomplicated (principal) | CPT/HCPCS: 93010 ==

== ENCOUNTER 2025-04-03 16:32 | Outpatient (AMB) | payer OTHER, SELFPAY ==
--- NOTE | 2025-04-03 16:36 | A.OFFVIS_ITS ---
Vital Signs 04/03/25 16:37 BP 116/70 Pulse 104 H Pulse Oximetry (%) 98 Intake Visit Reasons: MAT Allergies No Known Allergies Allergy (Verified 04/03/25 16:37) HPI Comments Details: A 34-year-old male presents for a follow-up visit requesting a change in his psychiatric medications, upon further assessment the patient is in the care of [facility] with a mental health therapist and provider. T/w encouraged the patient to follow up with [facility] and prescribing provider for request regarding a change in medications for insomnia. Reports being prescribed buprenorphine-naloxone by [facility] and taking the medication intermittently as he is doing well. Denies use of opiates, alcohol, and other substances. [facility] Medical History Anxiety Depression Surgical defect of lip Tobacco use disorder Mild benzodiazepine use disorder Opioid use disorder Insomnia Cocaine use disorder, moderate, dependence No known health problems Surgical History History of appendectomy Family History Father No problems noted. Father No problems noted. Mother Health problem in family Social History Alcohol intake: current Alcohol intake frequency: a few times a month Comment: weekend 1=2 standard drinks Patient Tobacco Use Status: Current everyday Tobacco user Cigarette Packs Per Day: 0.5 Cigarettes Per Day: 10 Years Smoked: 10 e-Cigarette/Vaping Use: Never Used Second Hand Smoke Exposure: No Substance Use Type: Crack/Cocaine Review of Systems Const All systems reviewed & are unremarkable except as noted in HPI and below Physical Exam Vital Signs: Last Vital Signs Pulse 104 H 04/03/25 16:37 BP 116/70 04/03/25 16:37 Pulse Ox 98 04/03/25 16:37 Const General: cooperative Psych Appearance: well kempt Mental Status: mental status grossly normal Speech and movement: Normal speech and movement present Affect: normal affect Attitude: cooperative Thought process: Normal thought process present Thought content: Normal thought content present (Denies suicidal/homicidal ideation, plan or intent) Insight: Good insight present (Psych) Judgement: Good judgement present (Psych) Assessment & Plan Assessment & Plan (1) Opioid use disorder in remission: Code(s): F11.91 - Opioid use, unspecified, in remission Category: Medical Plan The plan is to follow up with [facility] to request a change in medication being prescribed for symptoms of insomnia. Follow-up as needed, if patient decides to receive buprenorphine-naloxone treatment at [facility]. Patient Instructions: - Follow up with [facility] re: psychiatric medications. - Follow up as needed with [facility]. - Call 911, crisis, or go to nearest emergency department if suicidal/homicidal ideation emerge. - Call with questions, concerns, or to report side effects/new onset of symptoms to [facility]. - The patient verbalized understanding and agreed with plan of care. Coding Level of Care Code Est Pt Level 3 (67667) Diagnoses Opioid use disorder in remission F11.91
[2025-04-03 16:37] VITALS: BP 116/70; PULSE 104; O2SAT 98
--- OUTSIDE RECORDS SUMMARY | 2025-04-03 18:34 | XMS_ITS | Clinical Summary ---
Author Organization [employer] Address [address] [place] [address] [address] [place] [address] Care Team Providers Care Regional Director Of Finance Name Role Phone Unavailable Primary Care Provider Unavailabl e Medications loratadine (Claritin) 10 MG tablet take [...] Comments Depression Screening 1989 SDOH Screening 1989 Disability Screening 1989 Alcohol/Substance Use Screening 2001 Tobacco Screening 2001 Family Planning (PISQ) 2004 HPV Vaccines (1 - Male 3-dose series) 2004 COVID-19 Vaccine (3 - season) 2025 12/05/2020, 11/14/2020 Influenza Vaccine (#1) 2025 , 05/29/2015, 06/01/2008, Additional history exists Lipid [...] Completed 08/06/2021 Hepatitis C Screening Completed 08/06/2021 Hepatitis A Vaccines Aged Out No long er eligible based on patient's age to complete this topic Meningococcal B Vaccine Aged Out No l onger eligible based on patient's age to complete this topic Pneumococcal Vaccine: Pediatrics (0 to 5 Years) and At-Risk Patients (6 to 49) Years Aged Out No longer eligible based on [...] HEPATITIS C ANTIBODY NON-REACT CHRISTINA NON-REACT CHRISTINA [facility] INDEX 0.03 <1.00 [facility] Comment: HCV antibody was non-reactive. There is no laboratory evidence of HCV infection. In most cases, no further action is required. However, if recent HCV exposure is suspected, a test for HCV RNA (test code 23573) is suggested. For additional information please refer to http://education.[employer]/faq/FIO43w6 (This link is being provided for informational/ educational purposes only.) 08/06/2021 10:4 3 AM EST us Peggy Coombs MD HISTORICAL/NON ORDERABLE LABS Final Result [facility] [address] * HIV 1/2 ANTIGEN/ANTIBODY,FOURTH GENERATION W/RFL (08/06/2021 10:43 AM EST) HIV-1/2 ANTIGEN AND ANTIBODIES, 4TH GENERATION W/ REFLEX NON-REACT CHRISTINA NON-REACT CHRISTINA [facility] Comment: HIV-1 antigen and HIV-1/HIV-2 antibodies were not detected. There is no laboratory evidence of HIV infection. PLEASE NOTE: This information has been disclosed to you from records whose confidentiality may be protected by state law. If your state requires such protection, then the state law prohibits you from making any further disclosure of the information without the specific written consent of the person to whom it pertains, or as otherwise permitted by law. A general authorization for the release of medical or other information is NOT sufficient for this purpose. For additional information please refer to http://[employer].Avitide/faq/JGH171 (This link is being provided for informational/ educational purposes only.) The performance of this assay has not been clinically validated in patients less than 2 years old. 08/06/2021 10:4 3 AM EST us Peggy Coombs MD LAB BLOOD ORDERABLES Final Res ult [facility] [address] * (ABNORMAL) LIPID PANEL, STANDARD (08/06/2021 10:43 AM EST) Chol/HDLC Ratio 5.1(H) <5.0 (calc) [facility] Cholesterol, Total 184 <200 mg/dL [facility] HDL Cholesterol 36(L) > OR = 40 mg/dL [facility] LDL Cholesterol 119(H) mg/dL (calc) [facility] Comment: Reference range: <100 Desirable range <100 mg/dL for primary prevention; <70 mg/dL for patients with CHD or diabetic patients with > or = 2 CHD risk factors. LDL-C is now calculated using the Jose Juan-Bryan calculation, which is a validated novel method providing better accuracy than the Friedewald equation in the estimation of LDL-C. Jose Juan SHELDON et al. BOLIVAR. 2013;310(19): 2983-6075 (http://education.BJ100.com.Avitide/faq/PUF306) Non-HDL Cholesterol 148(H) <130 mg/dL (calc) [facility] Comment: For patients with diabetes plus 1 major ASCVD risk factor, treating to a non-HDL-C goal of <100 mg/dL (LDL-C of <70 mg/dL) is considered a therapeutic option. Triglycerides 174(H) <150 mg/dL [facility] 08/06/2021 10:4 3 AM EST us Peggy Coombs MD LAB BLOOD ORDERABLES Final Res ult [facility] [address] [place] [address], from Last 3 Months or Most Recently Relevant to Health Maintenance Insurance [facility]
--- OUTSIDE RECORDS SUMMARY | 2025-04-03 18:34 | XMS_ITS | Clinical Summary ---
Author Organization [facility] Address [address] [place] [address] Care Team Providers Care Forester Aide Name Role Phone Unavailable Primary Care Provider [...] 3 - 19 + 3-dose series) 2008 Imm-HPV (1 - 3-dose SCDM series) 2016 Alcohol and Drug Screen 06/29/2024 Depression Annual Screen 06/29/2024 [id number] ( season) 2025 021, 11/14/2020 Imm-Influenza (#1) 2025 05/21/2020, 05/29/2015 Insurance [facility]
--- OUTSIDE RECORDS SUMMARY | 2025-04-03 18:34 | XMS_ITS | Encounter Summary ---
Author Organization [employer] [facility] Address [address] [place] [address] [address] [address] Care Team Providers Care Underwear Finisher Name Role Phone Peggy Coombs MD Primary Care Provider [phone] Encounter Details Date Type Department Care Team (Late st Contact Info) Description 03/24/2023 Orders Only [facility] [address] [place] [address] Peggy Coombs MD [address] [place] [address] Social History Tobacco Use Types Packs/Day Years [...] on filedocumented in this encounter Care Teams Underwear Finisher Relationship Specialty Start Date End Date Peggy Coombs MD [address] [place], [place] [phone] PCP - General Family Medicine 05/16/20 03/12/25 documented as of this encounter
--- OUTSIDE RECORDS SUMMARY | 2025-04-03 18:34 | XMS_ITS | Encounter Summary ---
Author Organization [employer] [facility] Address [address] [place] [id number] Care Team Providers Care Brim Raiser Name Role Phone Peggy Coombs MD Primary Care Provider [phone] Reason for Visit * Reason Onset Date Comments Appointment Request 07/08/2023 Encounter Details Date Type Department Care Team ([facility] st Contact Info) Description 07/08/2023 Telephone [facility]INE [address] [place] [address] Peggy Coombs MD [address] [place] [address] Appointment Request Social History Tobacco Use Types [...] on filedocumented in this encounter Care Teams Brim Raiser Relationship Specialty Start Date End Date Peggy Coombs MD [address] [place], [place] [phone] PCP - General Family Medicine 05/16/20 03/12/25 documented as of this encounter
== END 2025-04-03 16:58 | disposition home or self-care (01) ==
LOC: HO.HCC 16:33
PROVIDERS: Visit Provider Clinical Nurse Specialist Psychiatric/Mental Health
DX: F11.91 Opioid use, unspecified, in remission (principal)
CPT/HCPCS: 99213

== ENCOUNTER → 2025-04-03 16:32 | Outpatient (BNVA) | payer OTHER, SELFPAY | PROVIDERS: Visit Provider Clinical Nurse Specialist Psychiatric/Mental Health | DX: F11.91 Opioid use, unspecified, in remission (principal); G47.00 Insomnia, unspecified | CPT/HCPCS: 99212 ==